=== PATIENT | female | born 1980 | race Caucasian/White ===

== ENCOUNTER 2016-10-08 04:26 | Emergency (ER) | payer MEDICAID ==
[~2016-10-08] VITALS: Ht 167.6 cm; Wt 80.5 kg
[2016-10-08 05:15] VITALS: Ht 167.6 cm; Wt 80.5 kg
[2016-10-08] MEDS ORDERED: ALBUTEROL 0.083% (NEB) 2.5 MG/3 ML AMP INH STA (06:57)
--- NOTE | 2016-10-08 07:24 | RADRPT ---
PROCEDURE: Chest. CLINICAL INDICATION: Shortness of breath. TECHNIQUE: Single frontal view of the chest was obtained. COMPARISON: None. FINDINGS: The cardiac silhouette is within normal limits. The aortic arch is unremarkable. There is no focal consolidation, vascular congestion or pleural effusion. There is no pneumothorax. IMPRESSION: No evidence for active cardiopulmonary disease. .Twin Doyle MD, MD Date Time Electronically viewed and signed by .Twin Doyle MD, on 10/08/2016 07:23 .T/
[2016-10-08] MEDS ORDERED: ALBU8.5H3 INH (07:51)
[2016-10-08 08:03] VITALS: BP 109/57; PULSE 92; RESP 18; TEMP 98.4
--- NOTE | 2016-10-08 08:03 | ERD ---
ER Documentation Chief Complaint Date/Time DATE: 10/08/16 TIME: 08:00 Chief Complaint 18 wks , chest pain x 1 day HPI 36-year-old female presents to the emergency department complaining of cough and chest pain. Patient states that over the last 24 hours, she began having increasing cough. There is no sputum production fevers chills hemoptysis or difficulty breathing. Patient then began developing a pleuritic type chest discomfort at approximately 230 this morning and came to the emergency department for evaluation. At this time, patient describes no shortness of breath. The discomfort in her chest is non-positional, nonexertional and non-anginal. She describes it as mild to moderate ROS All systems reviewed and are negative except as per history of present illness. Medications Home Meds Active Scripts Albuterol Sulfate* (Proair HFA*) 8.5 Gm Hfa.aer.ad, 2 PUFF INH Q4H Y for WHEEZING AND SOB, #1 INHALER Prov:FERNANDO RAMOS 10/08/16 Allergies Allergies: Coded Allergies: No Known Allergy (Unverified , 10/08/16) PMhx/Soc Medical and Surgical Hx: pt denies Medical Hx, pt denies Surgical Hx Hx Alcohol Use: No Hx Substance Use: No Hx Tobacco Use: No Smoking Status: Never smoker FmHx Noncontributory for chief complaint Physical Exam Vitals Vital Signs Date Time Temp Pulse Resp B/P Pulse Ox O2 Delivery O2 Flow Rate FiO2 10/08/16 07:25 82 18 99 21 10/08/16 05:15 98.5 96 20 119/56 99 Physical Exam GENERAL: The patient is well developed and appropriate for usual state of health in no apparent distress HEENT: Pupils equal, round, and reactive to light. EOMI. There is no scleral icterus. NECK: C-spine is soft and supple, there is no meningismus. There is no cervical lymphadenopathy. LUNGS: Wheezing bilaterally. There is no tachypnea or retractions or use of accessory muscles HEART: Regular rate and rhythm, no murmurs, clicks, rubs or gallops. ABDOMEN: Soft, non-tender, non-distended. There are bowel sounds in all four quadrants. No rebound or guarding. EXTREMITIES: There is no peripheral cyanosis or edema. No focal swelling or erythema. NEURO: The patient moves all four extremities with 5/5 strength. Cranial nerves II - XII are intact. Normal gait. Alert and oriented SKIN: There is no apparent rash or petechiae. HEME/LYMPHATIC: There is no evidence of excessive bruising or lymphedema. PSYCHIATRIC: The patient does not appear anxious or depressed. Results 24 hrs Current Medications Medications (Trade) Dose Ordered Sig/Nata Route PRN Reason Start Time Stop Time Status Last Admin Dose Admin Albuterol (Proventil 0.083% (Neb)) 2.5 mg ONCE STAT INH 10/08/16 06:57 10/08/16 06:58 DC 10/08/16 07:25 Procedures/MDM Patient was taken to a room, seen and evaluated. Comfort measures were initiated. Diagnostic tests were ordered and reviewed. EK lead EKG reviewed by myself: Normal Sinus Rhythm Normal [place] and intervals No ST elevation, depression, or T wave inversion Impression: Normal EKG RADIOLOGY: reviewed with the radiologist REEVALUATION: heart tones were checked and were noted to be normal. Repeat evaluation of her lungs after bronchodilators showed that they were now clear to auscultation with no further wheezing. She had resolution of her discomfort MEDICAL DECISION MAKIN-year-old female presents to the emergency department with chest pain and wheezing. Patient is evidence of a bronchitis but no signs of definitive pneumonia based on exam and chest x-ray. Her wheezing is improved with a single bronchodilator treatment and she has no further evidence of increased work of breathing pneumonia hypoxemia or other high-risk concerns. Patient has no significant evidence for concerns for pulmonary embolism at this time which I think is low likelihood given her alternative diagnosis. At this time, given her status I will be treating her with albuterol but withholding antibiotics as I do not feel that she is toxic in any way at this time. Departure Diagnosis: Primary Impression: Wheeze Additional Impressions: Bronchitis Condition: Stable Patient Instructions: Bronchitis With Wheezing (Adult) Additional Instructions: Please see your doctor this week for a recheck. Return for any problems, increased symptoms or any other concerns FERNANDO RAMOS Oct 08, 2016 08:03
== END 2016-10-08 08:05 | disposition home or self-care (01) ==
LOC: E/R 04:26
DX: O99.89 Other specified diseases and conditions complicating pregnancy, childbirth and the puerperium (principal); R06.2 Wheezing; O99.512 Diseases of the respiratory system complicating pregnancy, second trimester; J40 Bronchitis, not specified as acute or chronic; R07.9 Chest pain, unspecified; R40.2142 Coma scale, eyes open, spontaneous, at arrival to emergency department; R40.2252 Coma scale, best verbal response, oriented, at arrival to emergency department; R40.2362 Coma scale, best motor response, obeys commands, at arrival to emergency department; Z3A.18 18 weeks gestation of pregnancy
CPT/HCPCS: 71010; 94664; Z7610; 93005

== ENCOUNTER 2016-12-19 20:57 | Outpatient (CLI) | payer MEDICAID ==
[~2016-12-19] VITALS: Ht 154.9 cm; Wt 84.6 kg
[~2016-12-19 20:57] MED LIST: ALBU8.5H3 INH
[2016-12-19 21:55] VITALS: Ht 154.9 cm; Wt 84.6 kg
[2016-12-19 22:06] VITALS: BP 115/63; PULSE 93; RESP 18
[2016-12-20 00:09] LABS: ADD UMIC YES; URINE BILIRUBIN (Dip) NEGATIVE (NEGATIVE); URINE BLOOD (Dip) 1+ (NEGATIVE); URINE COLOR LT. YELLOW (YELLOW); URINE GLUCOSE (Dip) NEGATIVE (NEGATIVE); URINE KETONES (Dip) NEGATIVE (NEGATIVE); URINE LEUKOCYTE ESTERASE (Dip) NEGATIVE (NEGATIVE); URINE NITRITE (Dip) NEGATIVE (NEGATIVE); URINE TOTAL PROTEIN (Dip) NEGATIVE (NEGATIVE); URINE UROBILINOGEN (Dip) 0.2 E.U./dL (0.1-1.0)
[2016-12-20 00:36] LABS: SQUAMOUS EPITHELIAL CELL,UR FEW
--- NOTE | 2016-12-20 01:03 | RADRPT ---
PROCEDURE: Limited OB ultrasound CLINICAL INDICATION: , pain. TECHNIQUE: Sonographic evaluation to assess the cervical length was performed. Transvaginal imagin g of the uterus was performed. COMPARISON: None. FINDINGS: The cervix is closed, measuring 4.4 cm in length. IMPRESSION: 1. Closed cervix measuring 4.4 cm. RPTAT: HTAR .Jesus Dickson MD, MD Date Time Electronically viewed and signed by .Jesus Dickson MD, on 12/20/2016 01:03 .R/
--- NOTE | 2016-12-20 06:42 | PN ---
Date/Time of Note Date/Time of Note DATE: 12/20/16 TIME: 06:37 OB Subjective Subjective Subjective 36 Year-old [id number] SIUP at 29 weeks presents with a chief complaint of occasional ucs. She states good movement. She denies nausea, vomiting, shortness of breath, chest pain, headache, visual changes, vaginal bleeding or LOF. OB Objective Objective Objective General: Patient appears well, alert and oriented, NAD, appropriate mood and affect ABD: gravid, soft, non-tender. Back: No CVA tenderness (B/L) LE: No clubbing, cyanosis, edema, thigh or calf tenderness bilaterally FHT: 135 bpm , moderate variability with acceleration, no deceleration-category I Contractions: Occasional Speculum exam: No vaginal bleeding or LOF, fibronectin collected SVE: closed/thick/high/post/ceph/intact membrane OB Assessment/Plan Other plan: 36 Year-old [id number] SIUP at 29 weeks presents with occASIONAL UCS. FFN: neg , OB US wnl, CL of 4.4. She had PO fluid. There was no further ucs. - FHR: No sign of metabolic acidosis- Category I - Contractions: None. - Reactive NST. - Symptoms and sign of labor, preeclampsia, kick count discussed with patient, she voiced understanding. All of her questions answered. - Patient was discharged home in stable condition with the appropriate discharge instructions provided. I would like patient to have close follow-up with her primary physician or outpatient clinic in 1-2 days or return to the ER for worsening symptoms or any other urgent concerns. GEOVANNI MOTTA Dec 20, 2016 06:42
== END 2016-12-20 01:45 | disposition home or self-care (01) ==
LOC: L-D 20:57 → OBT 20:57
PROVIDERS: ATTEND Obstetrics & Gynecology
DX: O62.9 Abnormality of forces of labor, unspecified (principal); O09.523 Supervision of elderly multigravida, third trimester; Z3A.29 29 weeks gestation of pregnancy
CPT/HCPCS: 76817; 81001; 82731; Z7500; 81003; G0463

== ENCOUNTER 2017-01-31 13:28 | Inpatient (IN) | payer MEDICAID ==
[~2017-01-31] VITALS: Ht 152.4 cm; Wt 86.4 kg
[2017-01-31 13:51] VITALS: Ht 152.4 cm; Wt 86.4 kg
[2017-01-31] MEDS ORDERED: PREN1TAB31 PO (13:54)
--- NOTE | 2017-01-31 15:00 | RADRPT ---
PROCEDURE: US OB biophysical profile. CLINICAL INDICATION: evaluation, low YOEL TECHNIQUE: Multiple sonographic images of the pelvis were obtained. The images were reviewed on a PACS workstation. COMPARISON: Obstetrical ultrasound from 12/19/2016 FINDINGS: There is a single viable intrauterine gestation. Cardiac activity is present with 136 beats per min [place]. There is a vertex presentation. The placenta is anterior. There is no evidence of placental abruption. There is a low amount of amniotic fluid with an YOEL = 4.9 cm. Biophysical profile: movement 2/2 tone 2/2. breathing 2/2 YOEL 0/2 Total 6/8 RPTAT: AA . IMPRESSION: Abnormal biophysical profile score of 6/8 due to low YOEL of 4.9 cm. Physician Waylon Date Time Electronically viewed and signed by Denilson Pritchett Physician on 01/31/2017 14:59 /
--- NOTE | 2017-01-31 15:01 | RADRPT ---
PROCEDURE: Obstetrical ultrasound CLINICAL INDICATION: LOW YOEL TECHNIQUE: Multiple sonographic images of the pelvis were obtained. The images were reviewed on a PACS workstation. COMPARISON: Obstetrical ultrasound from 12/19/2016 FINDINGS: The cervix is not well visualized. There is a single viable intrauterine gestation. Cardiac activity is present with 144 beats per minute. There is a vertex presentation. The placenta is anterior. There is no evidence for an abruption or placenta previa. There is a low amount of amniotic fluid with an YOEL = 4.9 cm. Measurements were made in order to determine age. The results are as follows (cm): BPD =8.68 HC =31.82 AC =32.33 FL =6.74 Estimated gestational age by ultrasound of approximately 35 weeks, 0 days. The estimated date of delivery by ultrasound is 03/07/2017. Estimated gestational age by LMP of approximately 35 weeks, 1 day. The estimated date of delivery by LMP is 03/06/2017. EFW = 2734 grams (62nd percentile) IMPRESSION: Single viable intrauterine gestation of approximately 35 weeks, 0 days . The estimated date of delivery is 03/07/2017 . Dating by ultrasound is within 1 day of dating by LMP. Low YOEL of 4.9 cm. Cephalic presentation. Estimated weight is in the 62nd percentile. RPTAT: EE Physician Waylon Date Time Electronically viewed and signed by Physician Waylon on 01/31/2017 15:01 /
[2017-01-31] MEDS: LACTATED RINGER'S 1,000 ML IV SCH ×2 (16:06→21:00)
--- NOTE | 2017-01-31 21:33 | RADRPT ---
PROCEDURE: OB ultrasound for biophysical profile CLINICAL INDICATION: Oligohydramnios. TECHNIQUE: Multiple sonographic images of the gravid uterus performed. The images were reviewed on a PACS workstation. COMPARISON: 01/31/2017 FINDINGS: A single live intrauterine is identified with heart rate of 125 bpm. Fet us is in a cephalic presentation. Placenta is located anterior. Biophysical profile: breathing movement = 2/2 tone = 2/2 motion = 2/2 YOEL = 0/2 YOEL = 5.1 cm. IMPRESSION: 1. Single live intrauterine gestation. 2. Biophysical profile = 6/8 due to a low amniotic fluid index 3. YOEL = 5.1 cm, similar with the margin of error to prior YOEL of 4.9 cm. RPTAT: HMVK .Saji Pavon MD, MD Date Time Electronically viewed and signed by .Saji Pavon MD, MD on 01/31/2017 21:32 .K/
--- NOTE | 2017-02-01 09:17 | RADRPT ---
PROCEDURE: OB ultrasound for biophysical profile CLINICAL INDICATION: Low amniotic fluid index. TECHNIQUE: Multiple sonographic images of the pelvis were obtained. Transabdominal view of the gr avid uterus are available for review. The images were reviewed on a PACS workstation. COMPARISON: 01/31/2017 FINDINGS: breathing movement = 2/2 tone = 2/2 motion = 2/2 Quantitative amniotic fluid volume = 2/2 YOEL = 6.1 cm Single live intrauterine with cardiac activity at 127 beats per minute. There is a anterior placenta without previa. IMPRESSION: 1. Single living intrauterine gestation in cephalic position. 2. Biophysical profile = 8/8. 3. YOEL = 6.1 cm. RPTAT: AACC Physician Anne Date Time Electronically viewed and signed by Physician Anne on 02/01/2017 09:17 /
[2017-02-01] MEDS: LACTATED RINGER'S 1,000 ML IV SCH ×3 (10:26→22:36)
--- NOTE | 2017-02-01 17:15 | RADRPT ---
PROCEDURE: Limited OB ultrasound CLINICAL INDICATION: Oligohydramnios. Follow-up. Evaluate fluid volume. TECHNIQUE: Sonographic evaluation to assess the amniotic fluid volume was performed. Transabdomin al imaging of the gravid uterus was performed. COMPARISON: Exam dated 01/31/2017. FINDINGS: Single live intrauterine with cardiac activity is identified with a heart rate of 12 6 beats per minute. There is a cephalic lie and an anterior, grade II placenta. The amniotic -fluid volume equals approximately 6.5 cm. IMPRESSION: Amniotic fluid volume equals 6.5 cm, which is consistent with borderline oligohydramnios, and minima lly improved from the prior. RPTAT: HLBP .Rogelio Lugo MD, Date Time Electronically viewed and signed by .Rogelio Lugo MD, MD on 02/01/2017 17:14 .P/
[2017-02-02] MEDS: LACTATED RINGER'S 1,000 ML IV SCH ×2 (05:16→12:08)
--- NOTE | 2017-02-02 12:38 | RADRPT ---
PROCEDURE: US OB. CLINICAL INDICATION: Low YOEL , pain TECHNIQUE: Transabdominal views of the pelvis are available for review. COMPARISON: 02/01/17 FINDINGS: There is a single intrauterine gestation in a vertex position. The heart rate is noted at 142 bpm. The placenta is anterior. The YOEL measures 7.6 cm. RPTAT: AA IMPRESSION: Slightly decreased YOEL. .Gera Sanchez MD, MD Date Time Electronically viewed and signed by .Gera Sanchez MD, on 02/02/2017 12:38 .S/
--- NOTE | 2017-02-02 14:11 | HP ---
Date/Time of Note Date/Time of Note DATE: 02/02/17 TIME: 13:56 OB - History Hx of Present Free Text/Dictation This is a 36 years old female 3 para 2 with a history of 2 previous section EDC March 06, 2017 seen at the triage unit due to low YOEL of 4.9 patient hydrated as of February 01 IV infusion Ringer's lactate 150cc q. one hour repeat ultrasound for YOEL today 7.6 perinatology phone consult recommended DC home to scheduled for repeat NST YOEL a.m. at NST unit patient is being discharged with recommendation of hydration and bedrest and to present herself NST unit in the morning Chief Complaint: Low YOEL Estimated Due Date: Mar 06, 2017 : 3 Care: Limited Care Ultrasounds: Normal mid trimester US Obstetrical Complications: Other (Low YOEL) Medical Complications: Other (Right oophorectomy due to ovarian cyst, recently discovered possible asthma) Past Family/Social History * Past Medical, Surgical, Family and Obstetric Histories reviewed from chart. Rubella: immune RPR/VDRL: Negative GBS Status: Negative HBsAG: Negative OB Admission Exam Physical Exam HEENT: WNL Heart: Rhythm Normal Lungs: Clear, Equal Abdomen: WNL Extremities: Normal Reflexes: Normal Station: -2 Membranes: Intact Heart Rate: 130's Accelerations: Accelerations Present Varibility: Moderate OB Assessment/Plan Reason for admission: other (Admitted to the hospital for hydration due to low YOEL) Plan: Other (Patient discharged home with the perinatologist recommendation to to make appointment on February 03 at NST clinic for ultrasound follow-up of low YOEL) BRIANNE BENEDICT MD Feb 02, 2017 14:07
--- NOTE | 2017-02-02 14:14 | DS ---
Date/Time of Note Date/Time of Note DATE: 02/02/17 TIME: 14:11 Discharge Summary Admission/Discharge Info Admit Date/Time February 01, 2017 at 00:30 Discharge Date/Time February 02, 2017 at 1411 Final Diagnosis 35-1/2 weeks low YOEL Patient Condition: Good Consults Perinatology Procedures Observation hydration expecting management Hx of Present Illness 35-1/2 weeks low YOEL Hospital Course Hospital course satisfactory biophysical profile 8 out of 8 patient discharged with appointment on February 03 with perinatology office Home Meds Active Scripts Albuterol Sulfate* (Proair HFA*) 8.5 Gm Hfa.aer.ad, 2 PUFF INH Q4H Y for WHEEZING AND SOB, #1 INHALER Prov:FERNANDO RAMOS 10/08/16 Reported Medications Vits #90-Iron Fum-FA ( Formula) 1 Each Tablet, 1 TAB PO DAILY, TAB 01/31/17 Primary Care Provider Care Physician No Primary Time spent on discharge: < 30 minutes BRIANNE BENEDICT MD Feb 02, 2017 14:14
== END 2017-02-02 14:45 | disposition home or self-care (01) | DRG 782 ==
LOC: OBT 13:28 → L-D 13:30 → OBG 15:25 → OBT 02-01 00:30 → OBG 02-01 00:30
PROVIDERS: ADMIT Obstetrics & Gynecology; ATTEND Obstetrics & Gynecology
DX: O41.8X30 Other specified disorders of amniotic fluid and membranes, third trimester, not applicable or unspecified (principal); O09.523 Supervision of elderly multigravida, third trimester; Z3A.35 35 weeks gestation of pregnancy
CPT/HCPCS: 76815; 76816; 76818; 96360; G0463; J7120

== ENCOUNTER 2017-02-03 15:17 | Outpatient (CLI) | payer MEDICAID ==
[~2017-02-03] VITALS: Ht 154.9 cm; Wt 86.5 kg
[~2017-02-03 15:17] MED LIST changes: +PREN1TAB31 PO
[2017-02-03 15:47] VITALS: Ht 154.9 cm; Wt 86.5 kg
[2017-02-03 15:48] VITALS: BP 116/57; PULSE 82; RESP 18
--- NOTE | 2017-02-03 16:20 | RADRPT ---
PROCEDURE: Obstetrical ultrasound CLINICAL INDICATION: HISTORY OF LOW YOEL TECHNIQUE: Multiple sonographic images of the pelvis were obtained. The images were reviewed on a PACS workstation. COMPARISON: Obstetrical ultrasound from 02/02/2017 FINDINGS: The cervix is not well visualized. There is a single viable intrauterine gestation. Cardiac activity is present with 126 beats per minute. There is a vertex presentation. The placenta is anterior. There is no evidence for an abruption or placenta previa. There is a normal amount of amniotic fluid with an YOEL = 8.9 cm. IMPRESSION: Normal YOEL of 8.9 cm, compared with an YOEL of 7.6 cm previously. Cephalic presentation. RPTAT: EE Physician Waylon Date Time Electronically viewed and signed by Physician Waylon on 02/03/2017 16:19 /
--- NOTE | 2017-02-03 16:54 | QN ---
Documentation Comment ho low hari no complaints vss exam wnl us wnl ap iup 35 wks borerline oligo-resolved GLENYS ATWOOD MD Feb 03, 2017 16:54
--- NOTE | 2017-02-03 16:58 | TRIAGE ---
OB Triage Datetime Report Generated by CPN: 02/03/2017 16:57 Datetime: 02/03/2017 16:40 Stage of : OB Triage Labor Evaluation Frequency: 0 Monitor Mode: External Pattern: Normal: <= 5 Contractions in 10 Minutes Resting [place]one [place]: Relaxed Heart Rate FHR Baseline Rate: 130 Monitor Mode: External US Variability: Moderate 6-25 bpm Accelerations: 15X15 Decelerations: None Category: Category I Pain Presence: None/Denies Datetime: 02/03/2017 15:46 Assessment Type: Admission Assessment Maternal Assessment Level of Consciousness: Fully Conscious DTR's/Clonus: DTRs 2+; No Clonus Headache: Denies Blurred Vision: No Respiratory Effort: Unlabored; Regular Rhythm; Equal Expansion Breath Sounds, Left: Clear and Equal Breath Sounds, Right: Clear and Equal Nausea/Vomiting: Denies RUQ Epigastric Pain: Denies Lower Extremities Edema: None Degree: None Upper Extremities Edema: None Degree: None Facial Edema: None Fall Risk Assessment History of Falling: (0) No Secondary Diagnosis: (0) No Ambulatory Aid: (0) Bedrest/Nurse Assist IV Therapy: (0) No Gait: (0) Normal/Bedrest/Immobile Mental Status: (0) Oriented to Own Ability Fall Score: 0 Fall Risk Score Definition: No Risk: No action required Datetime: 02/03/2017 15:45 Time of Arrival: 02/03/2017 15:25 EGA: 35.4 Arrived By: Ambulatory Arrived From: Home Chief Complaint: HISTORY OF LOW YOEL. PT. HERE FOR FOLLOW UP YOEL Movement: Present Contractions: Denies/Absent Rupture of Membranes: Denies Vaginal Bleeding: None Vaginal Discharge: Denies Recent Sexual Intercouse: Denies Abdominal Trauma: Not Applicable Patient Complaints: None Time Provider Notified: 02/03/2017 16:47 Provider Notified: DR. BENEDICT Initial Plan: TOCO/ US, YOEL-8.9 CM Datetime: 02/03/2017 15:40 Pain Presence: None/Denies Datetime: 02/02/2017 14:16 Labor Evaluation Frequency: 0 Monitor Mode: External Resting [place]one [place]: Relaxed Heart Rate FHR Baseline Rate: 140 Monitor Mode: External US FHR Baseline Changes: No Baseline Change Variability: Moderate 6-25 bpm Accelerations: 15X15 Decelerations: None Category: Category I Datetime: 02/02/2017 13:00 Labor Evaluation Frequency: 0 Monitor Mode: External Resting [place]one [place]: Relaxed Heart Rate FHR Baseline Rate: 130 Monitor Mode: External US FHR Baseline Changes: No Baseline Change Variability: Moderate 6-25 bpm Accelerations: 15X15 Decelerations: None Category: Category I Datetime: 02/02/2017 12:00 Labor Evaluation Frequency: 0 Monitor Mode: External Resting [place]one [place]: Relaxed Heart Rate FHR Baseline Rate: 130 Monitor Mode: External US FHR Baseline Changes: No Baseline Change Variability: Moderate 6-25 bpm Accelerations: 15X15 Decelerations: None Category: Category I Datetime: 02/02/2017 10:55 Labor Evaluation Frequency: 0 Monitor Mode: External Resting [place]one [place]: Relaxed Heart Rate FHR Baseline Rate: 140 Monitor Mode: External US FHR Baseline Changes: No Baseline Change Variability: Moderate 6-25 bpm Accelerations: 15X15 Decelerations: None Category: Category I Datetime: 02/02/2017 10:24 Labor Evaluation Frequency: 0 Monitor Mode: External Resting [place]one [place]: Relaxed Heart Rate FHR Baseline Rate: 130 Monitor Mode: External US FHR Baseline Changes: No Baseline Change Variability: Moderate 6-25 bpm Accelerations: 15X15 Decelerations: None Category: Category I Datetime: 02/02/2017 09:44 Monitor Mode: External Resting [place]one [place]: Relaxed Heart Rate FHR Baseline Rate: 120 Monitor Mode: External US FHR Baseline Changes: No Baseline Change Variability: Moderate 6-25 bpm Category: Category I Datetime: 02/02/2017 09:00 Labor Evaluation Frequency: 0 Monitor Mode: External Resting [place]one [place]: Relaxed Heart Rate FHR Baseline Rate: 120 Monitor Mode: External US FHR Baseline Changes: No Baseline Change Variability: Moderate 6-25 bpm Accelerations: 15X15 Decelerations: None Category: Category I Datetime: 02/02/2017 08:02 Assessment Type: Ongoing Assessment Maternal Assessment Level of Consciousness: Fully Conscious DTR's/Clonus: DTRs 2+; No Clonus Headache: Denies Blurred Vision: No Respiratory Effort: Unlabored; Regular Rhythm; Equal Expansion Breath Sounds, Left: Clear and Equal Breath Sounds, Right: Clear and Equal Nausea/Vomiting: Denies RUQ Epigastric Pain: Denies Lower Extremities Edema: None Degree: None Upper Extremities Edema: None Degree: None Facial Edema: None Fall Risk Assessment History of Falling: (0) No Secondary Diagnosis: (0) No Ambulatory Aid: (0) Bedrest/Nurse Assist IV Therapy: (20) Yes Gait: (0) Normal/Bedrest/Immobile Mental Status: (0) Oriented to Own Ability Fall Score: 20 Fall Risk Score Definition: No Risk: No action required Datetime: 02/02/2017 08:00 Labor Evaluation Frequency: 0 Monitor Mode: External Resting [place]one [place]: Relaxed Heart Rate FHR Baseline Rate: 150 Monitor Mode: External US FHR Baseline Changes: No Baseline Change Variability: Moderate 6-25 bpm Accelerations: 15X15 Decelerations: None Category: Category I Datetime: 02/02/2017 07:59 Stage of : Antepartum Temperature Route: Oral Pain Assessment Pain Scale: 0 Pain Presence: None/Denies Datetime: 02/02/2017 07:10 Stage of : Antepartum Datetime: 02/02/2017 05:19 Stage of : Antepartum Datetime: 02/02/2017 05:16 Stage of : Antepartum Datetime: 02/02/2017 05:00 Labor Evaluation Frequency: NONE Monitor Mode: External Resting [place]one [place]: Relaxed Heart Rate FHR Baseline Rate: 120 Monitor Mode: External US Variability: Moderate 6-25 bpm Accelerations: 15X15 Decelerations: None Category: Category I Pain Presence: None/Denies Pain Type: N/A Datetime: 02/02/2017 04:00 Stage of : Antepartum Labor Evaluation Frequency: NONE Monitor Mode: External Resting [place]one [place]: Relaxed Heart Rate FHR Baseline Rate: 125 Monitor Mode: External US Variability: Moderate 6-25 bpm Accelerations: 15X15 Decelerations: None Category: Category I Pain Presence: None/Denies Pain Type: N/A Datetime: 02/02/2017 03:00 Labor Evaluation Frequency: NONE Monitor Mode: External Resting [place]one [place]: Relaxed Pain Presence: None/Denies Pain Type: N/A Datetime: 02/02/2017 02:00 Labor Evaluation Frequency: NONE Monitor Mode: External Resting [place]one [place]: Relaxed Heart Rate FHR Baseline Rate: 120 Monitor Mode: External US Variability: Moderate 6-25 bpm Accelerations: 15X15 Decelerations: None Category: Category I Pain Presence: None/Denies Pain Type: N/A Datetime: 02/02/2017 01:00 Labor Evaluation Frequency: NONE Monitor Mode: External Resting [place]one [place]: Relaxed Heart Rate FHR Baseline Rate: 120 Monitor Mode: External US Variability: Moderate 6-25 bpm Accelerations: 15X15 Decelerations: None Category: Category I Datetime: 02/02/2017 00:00 Labor Evaluation Frequency: NONE Heart Rate FHR Baseline Rate: 120 Monitor Mode: External US Variability: Moderate 6-25 bpm Accelerations: 15X15 Decelerations: None Category: Category I Pain Presence: None/Denies Pain Type: N/A Datetime: 02/01/2017 23:00 Labor Evaluation Frequency: NONE Monitor Mode: External Resting [place]one [place]: Relaxed Heart Rate FHR Baseline Rate: 125 Monitor Mode: External US Variability: Moderate 6-25 bpm Accelerations: 15X15 Decelerations: None Category: Category I Pain Presence: None/Denies Pain Type: N/A Datetime: 02/01/2017 22:26 Monitor Mode: External Contraction Comments: REAPPLIED AFTER SHOWER Monitor Mode: External US Comments: REAPPLIED AFTER SHOWER Datetime: 02/01/2017 22:00 Labor Evaluation Frequency: NONE Monitor Mode: External Resting [place]one [place]: Relaxed Heart Rate FHR Baseline Rate: 130 Monitor Mode: External US Variability: Moderate 6-25 bpm Accelerations: 15X15 Decelerations: None Category: Category I Pain Type: N/A Datetime: 02/01/2017 21:00 Labor Evaluation Frequency: NONE Monitor Mode: External Resting [place]one [place]: Relaxed Heart Rate FHR Baseline Rate: 135 Monitor Mode: External US Variability: Moderate 6-25 bpm Accelerations: 15X15 Decelerations: None Category: Category I Pain Presence: None/Denies Pain Type: N/A Datetime: 02/01/2017 20:00 Labor Evaluation Frequency: NONE Monitor Mode: External Resting [place]one [place]: Relaxed Heart Rate FHR Baseline Rate: 130 Monitor Mode: External US Variability: Moderate 6-25 bpm Accelerations: 15X15 Decelerations: None Category: Category I Pain Presence: None/Denies Pain Type: N/A Datetime: 02/01/2017 19:36 Stage of : Antepartum Assessment Type: Ongoing Assessment Maternal Assessment Level of Consciousness: Fully Conscious DTR's/Clonus: DTRs 2+; No Clonus Headache: Denies Blurred Vision: No Respiratory Effort: Unlabored; Regular Rhythm; Equal Expansion Breath Sounds, Left: Clear and Equal Breath Sounds, Right: Clear and Equal Nausea/Vomiting: Denies RUQ Epigastric Pain: Denies Lower Extremities Edema: None Degree: None Upper Extremities Edema: None Degree: None Facial Edema: None Temperature Route: Oral Fall Risk Assessment History of Falling: (0) No Secondary Diagnosis: (0) No Ambulatory Aid: (0) Bedrest/Nurse Assist IV Therapy: (0) No Gait: (0) Normal/Bedrest/Immobile Mental Status: (0) Oriented to Own Ability Fall Score: 0 Fall Risk Score Definition: No Risk: No action required Contraction Comments: PT DENIES UC'S Comments: PT STATES + FM Pain Presence: None/Denies Pain Type: N/A Datetime: 02/01/2017 18:00 Stage of : Antepartum Maternal Assessment Level of Consciousness: Fully Conscious Headache: Denies Nausea/Vomiting: Denies RUQ Epigastric Pain: Denies Labor Evaluation Frequency: 0/hr Monitor Mode: External Heart Rate FHR Baseline Rate: 130 Monitor Mode: External US Variability: Moderate 6-25 bpm Accelerations: 15X15 Decelerations: None Pain Assessment Pain Scale: 0 Pain Presence: None/Denies Vaginal Bleeding: None Datetime: 02/01/2017 17:00 Stage of : Antepartum Maternal Assessment Level of Consciousness: Fully Conscious Headache: Denies Nausea/Vomiting: Denies RUQ Epigastric Pain: Denies Labor Evaluation Frequency: 0/hr Monitor Mode: External Heart Rate FHR Baseline Rate: 130 Monitor Mode: External US Variability: Moderate 6-25 bpm Accelerations: 15X15 Decelerations: None Pain Assessment Pain Scale: 0 Pain Presence: None/Denies Vaginal Bleeding: None Datetime: 02/01/2017 16:00 Stage of : Antepartum Maternal Assessment Level of Consciousness: Fully Conscious Headache: Denies Nausea/Vomiting: Denies RUQ Epigastric Pain: Denies Labor Evaluation Frequency: 0/hr Monitor Mode: External Heart Rate FHR Baseline Rate: 130 Monitor Mode: External US Variability: Moderate 6-25 bpm Accelerations: 15X15 Decelerations: None Pain Assessment Pain Scale: 0 Pain Presence: None/Denies Vaginal Bleeding: None Datetime: 02/01/2017 15:00 Stage of : Antepartum Maternal Assessment Level of Consciousness: Fully Conscious Headache: Denies Nausea/Vomiting: Denies RUQ Epigastric Pain: Denies Labor Evaluation Frequency: 0/hr Monitor Mode: External Heart Rate FHR Baseline Rate: 130 Monitor Mode: External US Variability: Moderate 6-25 bpm Accelerations: 15X15 Decelerations: None Pain Assessment Pain Scale: 0 Pain Presence: None/Denies Vaginal Bleeding: None Datetime: 02/01/2017 14:24 Resting [place]one [place]: Relaxed Monitor Mode: External US Datetime: 02/01/2017 14:00 Stage of : Antepartum Maternal Assessment Level of Consciousness: Fully Conscious Headache: Denies Nausea/Vomiting: Denies RUQ Epigastric Pain: Denies Labor Evaluation Frequency: 0/hr Monitor Mode: External Heart Rate FHR Baseline Rate: 130 Monitor Mode: External US Variability: Moderate 6-25 bpm Accelerations: 15X15 Decelerations: None Pain Assessment Pain Scale: 0 Pain Presence: None/Denies Vaginal Bleeding: None Datetime: 02/01/2017 13:29 Pain Presence: None/Denies Datetime: 02/01/2017 13:00 Stage of : Antepartum Maternal Assessment Level of Consciousness: Fully Conscious Headache: Denies Nausea/Vomiting: Denies RUQ Epigastric Pain: Denies Labor Evaluation Frequency: 0/hr Monitor Mode: External Heart Rate FHR Baseline Rate: 130 Monitor Mode: External US Variability: Moderate 6-25 bpm Accelerations: 15X15 Decelerations: None Pain Assessment Pain Scale: 0 Pain Presence: None/Denies Vaginal Bleeding: None Datetime: 02/01/2017 12:00 Stage of : Antepartum Maternal Assessment Level of Consciousness: Fully Conscious Headache: Denies Nausea/Vomiting: Denies RUQ Epigastric Pain: Denies Labor Evaluation Frequency: 0/hr Monitor Mode: External Heart Rate FHR Baseline Rate: 130 Monitor Mode: External US Variability: Moderate 6-25 bpm Accelerations: 15X15 Decelerations: None Pain Assessment Pain Scale: 0 Pain Presence: None/Denies Vaginal Bleeding: None Datetime: 02/01/2017 11:00 Stage of : Antepartum Maternal Assessment Level of Consciousness: Fully Conscious Headache: Denies Nausea/Vomiting: Denies RUQ Epigastric Pain: Denies Labor Evaluation Frequency: 0/hr Monitor Mode: External Heart Rate FHR Baseline Rate: 130 Monitor Mode: External US Variability: Moderate 6-25 bpm Accelerations: 15X15 Decelerations: None Pain Assessment Pain Scale: 0 Pain Presence: None/Denies Vaginal Bleeding: None Datetime: 02/01/2017 10:17 Resting [place]one [place]: Relaxed Pain Presence: None/Denies Datetime: 02/01/2017 10:00 Stage of : Antepartum Maternal Assessment Level of Consciousness: Fully Conscious Headache: Denies Nausea/Vomiting: Denies RUQ Epigastric Pain: Denies Labor Evaluation Frequency: 0/hr Monitor Mode: External Heart Rate FHR Baseline Rate: 125 Monitor Mode: External US Variability: Moderate 6-25 bpm Accelerations: 15X15 Decelerations: None Pain Assessment Pain Scale: 0 Pain Presence: None/Denies Vaginal Bleeding: None Datetime: 02/01/2017 09:59 Stage of : Antepartum Datetime: 02/01/2017 09:00 Stage of : Antepartum Maternal Assessment Level of Consciousness: Fully Conscious Headache: Denies Nausea/Vomiting: Denies RUQ Epigastric Pain: Denies Labor Evaluation Frequency: 0/hr Monitor Mode: External Heart Rate FHR Baseline Rate: 125 Monitor Mode: External US Variability: Moderate 6-25 bpm Accelerations: 15X15 Decelerations: None Pain Assessment Pain Scale: 0 Pain Presence: None/Denies Vaginal Bleeding: None Datetime: 02/01/2017 08:00 Stage of : Antepartum Maternal Assessment Level of Consciousness: Fully Conscious Headache: Denies Nausea/Vomiting: Denies RUQ Epigastric Pain: Denies Labor Evaluation Frequency: 0/hr Monitor Mode: External Heart Rate FHR Baseline Rate: 125 Monitor Mode: External US Variability: Moderate 6-25 bpm Accelerations: 15X15 Decelerations: None Category: Category I Comments: ega 35.2 Pain Assessment Pain Scale: 0 Pain Presence: None/Denies Membrane Status: Intact Vaginal Bleeding: None Datetime: 02/01/2017 07:26 Heart Rate FHR Baseline Rate: 135 Variability: Moderate 6-25 bpm Accelerations: 15X15 Decelerations: None Category: Category I Datetime: 02/01/2017 07:24 Assessment Type: Admission Assessment Maternal Assessment Level of Consciousness: Fully Conscious Maternal Assessment Level of Consciousness: Fully Conscious DTR's/Clonus: DTRs 2+; No Clonus Headache: Denies Headache: Denies Blurred Vision: No Blurred Vision: No Respiratory Effort: Unlabored; Regular Rhythm; Equal Expansion Breath Sounds, Left: Clear and Equal Breath Sounds, Right: Clear and Equal Nausea/Vomiting: Denies Nausea/Vomiting: Denies RUQ Epigastric Pain: Denies Lower Extremities Edema: None Degree: None Upper Extremities Edema: None Degree: None Facial Edema: None Fall Risk Assessment History of Falling: (0) No Secondary Diagnosis: (0) No Ambulatory Aid: (0) Bedrest/Nurse Assist IV Therapy: (20) Yes Gait: (0) Normal/Bedrest/Immobile Mental Status: (0) Oriented to Own Ability Fall Score: 20 Fall Risk Score Definition: No Risk: No action required Monitor Mode: Palpation Resting [place]one [place]: Relaxed Pain Presence: None/Denies Membrane Status: Intact Datetime: 02/01/2017 06:54 Labor Evaluation Frequency: none Monitor Mode: External Resting [place]one [place]: Relaxed Heart Rate FHR Baseline Rate: 125 Monitor Mode: External US FHR Baseline Changes: No Baseline Change Variability: Moderate 6-25 bpm Accelerations: 15X15 Decelerations: None Category: Category I Datetime: 02/01/2017 06:00 Labor Evaluation Frequency: none Monitor Mode: External Resting [place]one [place]: Relaxed Heart Rate FHR Baseline Rate: 125 Monitor Mode: External US FHR Baseline Changes: No Baseline Change Variability: Moderate 6-25 bpm Accelerations: 15X15 Decelerations: None Category: Category I Datetime: 02/01/2017 05:00 Labor Evaluation Frequency: none Monitor Mode: External Resting [place]one [place]: Relaxed Heart Rate FHR Baseline Rate: 120 Monitor Mode: External US FHR Baseline Changes: No Baseline Change Variability: Moderate 6-25 bpm Accelerations: 15X15 Decelerations: None Category: Category I Datetime: 02/01/2017 04:00 Labor Evaluation Frequency: none Monitor Mode: External Resting [place]one [place]: Relaxed Heart Rate FHR Baseline Rate: 120 Monitor Mode: External US FHR Baseline Changes: No Baseline Change Variability: Moderate 6-25 bpm Accelerations: 15X15 Decelerations: None Category: Category I Datetime: 02/01/2017 03:00 Labor Evaluation Frequency: x1 Monitor Mode: External Duration (sec)2399: 50 Quality: Mild Resting [place]one [place]: Relaxed Contraction Comments: pt without complaint of uc pain. Heart Rate FHR Baseline Rate: 125 Monitor Mode: External US FHR Baseline Changes: No Baseline Change Variability: Moderate 6-25 bpm Accelerations: 15X15 Decelerations: None Category: Category I Datetime: 02/01/2017 02:00 Labor Evaluation Frequency: x1 Monitor Mode: External Duration (sec)2399: 50 Quality: Mild Resting [place]one [place]: Relaxed Contraction Comments: pt without complaint of uc pain. Heart Rate FHR Baseline Rate: 125 Monitor Mode: External US FHR Baseline Changes: No Baseline Change Variability: Moderate 6-25 bpm Accelerations: 15X15 Decelerations: None Category: Category I Datetime: 02/01/2017 01:00 Labor Evaluation Frequency: none Monitor Mode: External Resting [place]one [place]: Relaxed Heart Rate FHR Baseline Rate: 120 Monitor Mode: External US FHR Baseline Changes: No Baseline Change Variability: Moderate 6-25 bpm Accelerations: 15X15 Decelerations: None Category: Category I Datetime: 02/01/2017 00:24 Stage of : Antepartum Temperature Route: Oral Datetime: 02/01/2017 00:04 Stage of : Antepartum Datetime: 02/01/2017 00:00 Labor Evaluation Frequency: none Monitor Mode: External Resting [place]one [place]: Relaxed Heart Rate FHR Baseline Rate: 120 Monitor Mode: External US FHR Baseline Changes: No Baseline Change Variability: Moderate 6-25 bpm Accelerations: 15X15 Decelerations: None Category: Category I Datetime: 01/31/2017 23:00 Labor Evaluation Frequency: none Monitor Mode: External Resting [place]one [place]: Relaxed Heart Rate FHR Baseline Rate: 125 Monitor Mode: External US FHR Baseline Changes: No Baseline Change Variability: Moderate 6-25 bpm Accelerations: 15X15 Decelerations: None Category: Category II Datetime: 01/31/2017 22:00 Labor Evaluation Frequency: none Monitor Mode: External Resting [place]one [place]: Relaxed Heart Rate FHR Baseline Rate: 135 Monitor Mode: External US FHR Baseline Changes: No Baseline Change Variability: Moderate 6-25 bpm Accelerations: 15X15 Decelerations: None Category: Category I Datetime: 01/31/2017 21:00 Labor Evaluation Frequency: none Monitor Mode: External Resting [place]one [place]: Relaxed Heart Rate FHR Baseline Rate: 130 Monitor Mode: External US FHR Baseline Changes: No Baseline Change Variability: Moderate 6-25 bpm Accelerations: 15X15 Decelerations: None Category: Category I Datetime: 01/31/2017 20:04 Stage of : OB Triage Assessment Type: Admission Assessment Maternal Assessment Level of Consciousness: Fully Conscious DTR's/Clonus: DTRs 2+; No Clonus Headache: Denies Blurred Vision: No Respiratory Effort: Unlabored; Regular Rhythm; Equal Expansion Breath Sounds, Left: Clear and Equal Breath Sounds, Right: Clear and Equal Nausea/Vomiting: Denies RUQ Epigastric Pain: Denies Lower Extremities Edema: None Degree: None Upper Extremities Edema: None Degree: None Facial Edema: None Temperature Route: Oral Fall Risk Assessment History of Falling: (0) No Secondary Diagnosis: (0) No Ambulatory Aid: (0) Bedrest/Nurse Assist IV Therapy: (20) Yes Gait: (0) Normal/Bedrest/Immobile Mental Status: (0) Oriented to Own Ability Fall Score: 20 Fall Risk Score Definition: No Risk: No action required Datetime: 01/31/2017 20:00 Labor Evaluation Frequency: none Monitor Mode: External Resting [place]one [place]: Relaxed Heart Rate FHR Baseline Rate: 130 Monitor Mode: External US FHR Baseline Changes: No Baseline Change Variability: Moderate 6-25 bpm Accelerations: 15X15 Decelerations: None Category: Category I Pain Assessment Pain Scale: 0 Pain Presence: None/Denies Datetime: 01/31/2017 19:20 Assessment Type: Triage Datetime: 01/31/2017 19:14 Stage of : Antepartum Datetime: 01/31/2017 19:00 Stage of : Antepartum Labor Evaluation Frequency: NONE Monitor Mode: External Resting [place]one [place]: Relaxed Heart Rate FHR Baseline Rate: 130 Monitor Mode: External US FHR Baseline Changes: No Baseline Change Variability: Moderate 6-25 bpm Accelerations: 15X15 Decelerations: None Category: Category I Pain Assessment Pain Scale: 0 Pain Presence: None/Denies Pain Goal: 3 Datetime: 01/31/2017 18:00 Stage of : Antepartum Labor Evaluation Frequency: NONE Monitor Mode: External Resting [place]one [place]: Relaxed Heart Rate FHR Baseline Rate: 130 Monitor Mode: External US FHR Baseline Changes: No Baseline Change Variability: Moderate 6-25 bpm Accelerations: 15X15 Decelerations: None Category: Category I Pain Assessment Pain Scale: 0 Pain Presence: None/Denies Pain Goal: 3 Datetime: 01/31/2017 17:00 Stage of : Antepartum Labor Evaluation Frequency: NONE Monitor Mode: External Resting [place]one [place]: Relaxed Heart Rate FHR Baseline Rate: 130 FHR Baseline Changes: No Baseline Change Variability: Moderate 6-25 bpm Accelerations: 10X10 Decelerations: None Category: Category I Pain Assessment Pain Scale: 0 Pain Presence: None/Denies Pain Goal: 3 Datetime: 01/31/2017 15:42 Stage of : Antepartum Datetime: 01/31/2017 15:18 Labor Evaluation Frequency: 0 Monitor Mode: External Heart Rate FHR Baseline Rate: 130 Monitor Mode: External US FHR Baseline Changes: No Baseline Change Variability: Moderate 6-25 bpm Accelerations: 15X15 Decelerations: None Category: Category I Pain Assessment Pain Scale: 3 Pain Presence: Intermittent Pain Type: Cramping Pain Location: Abdomen Pain Relief Measures: Comfort Measures Datetime: 01/31/2017 15:14 Vaginal Exam Dilatation (cms): 0.0 Datetime: 01/31/2017 15:06 Labor Evaluation Frequency: 0 Monitor Mode: External Heart Rate FHR Baseline Rate: 130 Monitor Mode: External US FHR Baseline Changes: No Baseline Change Variability: Moderate 6-25 bpm Accelerations: 15X15 Decelerations: None Category: Category I Pain Presence: None/Denies Datetime: 01/31/2017 13:47 Stage of : OB Triage Assessment Type: Triage Maternal Assessment Level of Consciousness: Fully Conscious DTR's/Clonus: DTRs 2+; No Clonus Headache: Denies Blurred Vision: No Respiratory Effort: Unlabored; Regular Rhythm; Equal Expansion Breath Sounds, Left: Clear and Equal Breath Sounds, Right: Clear and Equal Nausea/Vomiting: Denies RUQ Epigastric Pain: Denies Lower Extremities Edema: None Degree: None Upper Extremities Edema: None Degree: None Facial Edema: None Temperature Route: Axillary Fall Risk Assessment History of Falling: (0) No Secondary Diagnosis: (0) No Ambulatory Aid: (0) Bedrest/Nurse Assist IV Therapy: (0) No Gait: (0) Normal/Bedrest/Immobile Mental Status: (0) Oriented to Own Ability Fall Score: 0 Fall Risk Score Definition: No Risk: No action required Datetime: 01/31/2017 13:42 Time of Arrival: 01/31/2017 13:43 EGA: 35.1 Arrived By: Ambulatory Arrived From: Office Chief Complaint: UC'S AND LOW YOEL Movement: Present Contractions: Irregular Rupture of Membranes: Denies Vaginal Bleeding: None Vaginal Discharge: Denies Recent Sexual Intercouse: Denies Abdominal Trauma: Not Applicable Patient Complaints: Cramping Time Provider Notified: 01/24/2017 14:10 Provider Notified: JAK Initial Plan: NST AND BPP AND YOEL Datetime: 12/20/2016 01:00 Labor Evaluation Frequency: NONE Monitor Mode: External Quality: Mild Pattern: Normal: <= 5 Contractions in 10 Minutes Heart Rate FHR Baseline Rate: 120 Monitor Mode: External US Variability: Moderate 6-25 bpm Accelerations: 15X15 Decelerations: None Category: Category I Datetime: 12/20/2016 00:00 Labor Evaluation Frequency: X1 Monitor Mode: External Quality: Mild Pattern: Normal: <= 5 Contractions in 10 Minutes Resting Tone [place]: Relaxed Heart Rate FHR Baseline Rate: 125 Monitor Mode: External US Variability: Moderate 6-25 bpm Accelerations: 15X15 Decelerations: None Category: Category I Datetime: 12/19/2016 23:00 Labor Evaluation Frequency: NONE Monitor Mode: External Pattern: Normal: <= 5 Contractions in 10 Minutes Resting Tone [place]: Relaxed Heart Rate FHR Baseline Rate: 125 Monitor Mode: External US Variability: Moderate 6-25 bpm Accelerations: 15X15 Decelerations: None Category: Category I Datetime: 12/19/2016 22:07 Stage of : OB Triage Datetime: 12/19/2016 22:04 Vaginal Exam Dilatation (cms): 0.0 Effacement (%): 0 Station: -3 Exam By: BEVAGELISTA Vaginal Bleeding: None Cervix, Consistency: Firm Cervix, Position: Midposition Datetime: 12/19/2016 22:00 Stage of : OB Triage Labor Evaluation Frequency: NONE Monitor Mode: External Pattern: Normal: <= 5 Contractions in 10 Minutes Resting Tone [place]: Relaxed Heart Rate FHR Baseline Rate: 125 Monitor Mode: External US Variability: Moderate 6-25 bpm Accelerations: 15X15 Decelerations: None Category: Category I Membrane Status: Intact Datetime: 12/19/2016 21:30 Assessment Type: Triage Maternal Assessment Level of Consciousness: Fully Conscious DTR's/Clonus: DTRs 2+; No Clonus Headache: Denies Blurred Vision: No Respiratory Effort: Unlabored; Regular Rhythm; Equal Expansion Breath Sounds, Left: Clear and Equal Breath Sounds, Right: Clear and Equal Nausea/Vomiting: Denies RUQ Epigastric Pain: Denies Lower Extremities Edema: None Degree: None Upper Extremities Edema: None Degree: None Facial Edema: None Fall Risk Assessment History of Falling: (0) No Secondary Diagnosis: (0) No Ambulatory Aid: (0) Bedrest/Nurse Assist IV Therapy: (0) No Gait: (0) Normal/Bedrest/Immobile Mental Status: (0) Oriented to Own Ability Fall Score: 0 Fall Risk Score Definition: No Risk: No action required Datetime: 12/19/2016 21:26 Stage of : OB Triage Time of Arrival: 12/19/2016 20:58 EGA: 29.0 Arrived By: Wheelchair Arrived From: Home Chief Complaint: CONTRACTIONS Movement: Present Time Provider Notified: 12/20/2016 22:00 Provider Notified: HADADIAN Initial Plan: FFN, CVL, SVE
== END 2017-02-03 15:56 | disposition home or self-care (01) ==
LOC: L-D 15:17 → OBT 15:17
PROVIDERS: ATTEND Obstetrics & Gynecology
DX: O41.03X0 Oligohydramnios, third trimester, not applicable or unspecified (principal); Z3A.35 35 weeks gestation of pregnancy
CPT/HCPCS: 76816; Z7500; G0463

== ENCOUNTER 2017-02-05 09:31 | Outpatient (CLI) | payer MEDICAID ==
[~2017-02-05] VITALS: Ht 154.9 cm; Wt 87.0 kg
[2017-02-05 09:45] VITALS: Ht 154.9 cm; Wt 87.0 kg
[2017-02-05 09:46] VITALS: BP 112/67; PULSE 131; RESP 18
--- NOTE | 2017-02-05 10:40 | RADRPT ---
PROCEDURE: OB ultrasound for biophysical profile. CLINICAL INDICATION: Biophysical profile. TECHNIQUE: Multiple sonographic images of the pelvis were obtained. Transabdominal view of the gr avid uterus are available for review. COMPARISON: 02/03/2017. FINDINGS: breathing movement = 2/2 tone = 2/2 motion = 2/2 YOEL = 9.6 cm Single live intrauterine with cardiac activity (161 beats per minute). IMPRESSION: 1. Single viable intrauterine gestation. 2. Biophysical profile = 8/8. 3. YOEL = 9.6 cm. RPTAT: EE .Earl Landon MD, Date Time Electronically viewed and signed by .Earl Landon MD, on 02/05/2017 10:44 .C/
--- NOTE | 2017-02-05 13:08 | TRIAGE ---
OB Triage Datetime Report Generated by CPN: 02/05/2017 13:08 Datetime: 02/05/2017 11:03 Stage of : OB Triage Datetime: 02/05/2017 10:00 Headache: Denies Blurred Vision: No RUQ Epigastric Pain: Denies Facial Edema: None Labor Evaluation Frequency: none Pattern: Normal: <= 5 Contractions in 10 Minutes Resting Tone [place]: Relaxed Heart Rate FHR Baseline Rate: 140 Monitor Mode: External US FHR Baseline Changes: No Baseline Change Variability: Moderate 6-25 bpm Accelerations: 15X15 Decelerations: None Category: Category I Vaginal Exam Membrane Status: Intact Datetime: 02/05/2017 09:50 Stage of : OB Triage Maternal Assessment Level of Consciousness: Fully Conscious DTR's/Clonus: DTRs 2+; No Clonus Headache: Denies Blurred Vision: No Respiratory Effort: Unlabored; Regular Rhythm; Equal Expansion Breath Sounds, Left: Clear and Equal Breath Sounds, Right: Clear and Equal Nausea/Vomiting: Denies RUQ Epigastric Pain: Denies Lower Extremities Edema: Bilateral Lower Extremities Degree: 1+ Upper Extremities Edema: None Degree: None Facial Edema: None Temperature Route: Axillary Fall Risk Assessment History of Falling: (0) No Secondary Diagnosis: (0) No Ambulatory Aid: (0) Bedrest/Nurse Assist IV Therapy: (0) No Gait: (0) Normal/Bedrest/Immobile Mental Status: (0) Oriented to Own Ability Fall Score: 0 Fall Risk Score Definition: No Risk: No action required Labor Evaluation Frequency: none Monitor Mode: External Heart Rate FHR Baseline Rate: 140 Monitor Mode: External US Pain Assessment Pain Scale: 0 Datetime: 02/05/2017 09:25 Time of Arrival: 02/05/2017 09:25 EGA: 35.6 Arrived By: Ambulatory Arrived From: Home Chief Complaint: NST/BPP follow up for low YOEL Movement: Present Rupture of Membranes: Denies Vaginal Bleeding: None Vaginal Discharge: Denies Recent Sexual Intercouse: Denies Abdominal Trauma: Not Applicable Patient Complaints: Other Time Provider Notified: 02/05/2017 10:46 Provider Notified: Dr Short Initial Plan: efm/ U/S Datetime: 02/03/2017 16:51 Labor Evaluation Frequency: 0 Monitor Mode: External Pattern: Normal: <= 5 Contractions in 10 Minutes Resting Tone [place]: Relaxed Heart Rate FHR Baseline Rate: 130 Monitor Mode: External US Variability: Moderate 6-25 bpm Accelerations: 15X15 Decelerations: None Category: Category I Datetime: 02/03/2017 15:46 Fall Score: 0 Fall Risk Score Definition: No Risk: No action required Datetime: 02/03/2017 15:45 EGA: 35.4 Datetime: 02/02/2017 08:02 Fall Score: 20 Fall Risk Score Definition: No Risk: No action required Datetime: 02/01/2017 19:36 Fall Score: 0 Fall Risk Score Definition: No Risk: No action required Datetime: 02/01/2017 07:24 Fall Score: 20 Fall Risk Score Definition: No Risk: No action required Datetime: 01/31/2017 20:04 Fall Score: 20 Fall Risk Score Definition: No Risk: No action required Datetime: 01/31/2017 13:47 Fall Score: 0 Fall Risk Score Definition: No Risk: No action required Datetime: 01/31/2017 13:42 EGA: 35.1 Datetime: 12/19/2016 21:30 Fall Score: 0 Fall Risk Score Definition: No Risk: No action required Datetime: 12/19/2016 21:26 EGA: 29.0
--- NOTE | 2017-03-23 19:06 | PN ---
Triage Information Date/Time 02/05/17 Weeks of Gestation 35 : 3 Para: 2 Assessment/Plan low hari BRIANNE BENEDICT MD Mar 23, 2017 19:06
== END 2017-02-05 11:05 | disposition home or self-care (01) ==
LOC: L-D 09:31 → OBT 09:31
PROVIDERS: ATTEND Obstetrics & Gynecology
DX: O41.93X0 Disorder of amniotic fluid and membranes, unspecified, third trimester, not applicable or unspecified (principal); Z3A.35 35 weeks gestation of pregnancy
CPT/HCPCS: 76818; Z7500; G0463

== ENCOUNTER 2017-02-08 10:20 | Outpatient (CLI) | payer MEDICAID ==
[~2017-02-08] VITALS: Ht 154.9 cm; Wt 86.5 kg
[2017-02-08 10:25] VITALS: BP 103/69; PULSE 116; RESP 18
[2017-02-08 10:26] VITALS: Ht 154.9 cm; Wt 86.5 kg
--- NOTE | 2017-02-08 11:11 | RADRPT ---
PROCEDURE: US OB biophysical profile. CLINICAL INDICATION: decreased movements, low YOEL TECHNIQUE: Multiple sonographic images of the pelvis were obtained. The images were reviewed on a PACS workstation. COMPARISON: No prior studies are available for comparison. FINDINGS: There is a single viable intrauterine gestation. Cardiac activity is present with 139 beats per min [place]. There is a vertex presentation. The placenta is anterior. There is no evidence of placental abruption. There is a slightly decreased amount of amniotic fluid with an YOEL = 7.9 cm. Biophysical profile: movement 2/2 tone 2/2. breathing 2/2 YOEL 2/2 Total 04/11 RPTAT: AA . IMPRESSION: Normal biophysical profile. Borderline oligohydramnios. . .Gera Sanchez MD, MD Date Time Electronically viewed and signed by .Gera Sanchez MD, MD on 02/08/2017 11:11 .S/
[2017-02-08] MEDS ORDERED: LACTATED RINGER'S 1,000 ML IV SCH (11:30)
--- NOTE | 2017-02-08 14:08 | RADRPT ---
PROCEDURE: US OB. CLINICAL INDICATION: Low YOEL , pain TECHNIQUE: Transabdominal views of the pelvis are available for review. COMPARISON: 02/08/2017 FINDINGS: There is a single intrauterine gestation in a vertex position. The heart rate is noted at 154 bpm. The placenta is anterior. The YOEL measures 7.9 cm. RPTAT: AA IMPRESSION: Borderline oligohydramnios, unchanged. .Gera Sanchez MD, MD Date Time Electronically viewed and signed by .Gera Sanchez MD, MD on 02/08/2017 14:08 .S/
--- NOTE | 2017-02-08 16:20 | TRIAGE ---
OB Triage Datetime Report Generated by CPN: 02/08/2017 16:19 Datetime: 02/08/2017 16:00 Labor Evaluation Frequency: 0 Monitor Mode: External Pattern: Normal: <= 5 Contractions in 10 Minutes Resting Tone [place]: Relaxed Heart Rate FHR Baseline Rate: 120 Monitor Mode: External US Variability: Moderate 6-25 bpm Accelerations: 15X15 Decelerations: None Category: Category I Datetime: 02/08/2017 13:54 Labor Evaluation Frequency: 0 Monitor Mode: External Pattern: Normal: <= 5 Contractions in 10 Minutes Resting Tone [place]: Relaxed Heart Rate FHR Baseline Rate: 120 Monitor Mode: External US Variability: Moderate 6-25 bpm Accelerations: 15X15 Decelerations: None Category: Category I Pain Assessment Pain Presence: None/Denies Datetime: 02/08/2017 13:05 Labor Evaluation Frequency: 0 Monitor Mode: External Pattern: Normal: <= 5 Contractions in 10 Minutes Resting Tone [place]: Relaxed Heart Rate FHR Baseline Rate: 120 Monitor Mode: External US Variability: Moderate 6-25 bpm Accelerations: 15X15 Decelerations: None Category: Category I Datetime: 02/08/2017 12:24 Labor Evaluation Frequency: 0 Monitor Mode: External Pattern: Normal: <= 5 Contractions in 10 Minutes Resting Tone [place]: Relaxed Heart Rate FHR Baseline Rate: 135 Monitor Mode: External US Variability: Moderate 6-25 bpm Accelerations: 15X15 Decelerations: None Category: Category I Datetime: 02/08/2017 11:45 Comments: baby moving constantly Datetime: 02/08/2017 10:41 Labor Evaluation Frequency: 0 Monitor Mode: External Pattern: Normal: <= 5 Contractions in 10 Minutes Resting Tone [place]: Relaxed Heart Rate FHR Baseline Rate: 140 Monitor Mode: External US Variability: Moderate 6-25 bpm Accelerations: 15X15 Decelerations: None Category: Category I Datetime: 02/08/2017 10:29 Assessment Type: Admission Assessment Maternal Assessment Level of Consciousness: Fully Conscious DTR's/Clonus: DTRs 2+; No Clonus Headache: Denies Blurred Vision: No Respiratory Effort: Unlabored; Regular Rhythm; Equal Expansion Breath Sounds, Left: Clear and Equal Breath Sounds, Right: Clear and Equal Nausea/Vomiting: Denies RUQ Epigastric Pain: Denies Lower Extremities Edema: None Degree: None Upper Extremities Edema: None Degree: None Facial Edema: None Fall Risk Assessment History of Falling: (0) No Secondary Diagnosis: (0) No Ambulatory Aid: (0) Bedrest/Nurse Assist IV Therapy: (0) No Gait: (0) Normal/Bedrest/Immobile Mental Status: (0) Oriented to Own Ability Fall Score: 0 Fall Risk Score Definition: No Risk: No action required Datetime: 02/08/2017 10:28 Time of Arrival: 02/08/2017 10:10 EGA: 36.2 Arrived By: Ambulatory Arrived From: Home Chief Complaint: REPEAT YOEL, HISTORY OF LOW YOEL Movement: Present Contractions: Denies/Absent Rupture of Membranes: Denies Vaginal Bleeding: None Vaginal Discharge: Denies Recent Sexual Intercouse: Denies Abdominal Trauma: Not Applicable Patient Complaints: None Time Provider Notified: 02/08/2017 11:19 Provider Notified: DR. BENEDICT Initial Plan: TOCO/US, YOEL-7.9, IV HYDRATION 500CC. REPEAT YOEL AFTER IV HYDRATION Datetime: 02/08/2017 10:24 Stage of : OB Triage Pain Assessment Pain Presence: None/Denies Datetime: 02/05/2017 09:50 Fall Score: 0 Fall Risk Score Definition: No Risk: No action required Datetime: 02/05/2017 09:25 EGA: 35.6 Datetime: 02/03/2017 15:46 Fall Score: 0 Fall Risk Score Definition: No Risk: No action required Datetime: 02/03/2017 15:45 EGA: 35.4 Datetime: 02/02/2017 08:02 Fall Score: 20 Fall Risk Score Definition: No Risk: No action required Datetime: 02/01/2017 19:36 Fall Score: 0 Fall Risk Score Definition: No Risk: No action required Datetime: 02/01/2017 07:24 Fall Score: 20 Fall Risk Score Definition: No Risk: No action required Datetime: 01/31/2017 20:04 Fall Score: 20 Fall Risk Score Definition: No Risk: No action required Datetime: 01/31/2017 13:47 Fall Score: 0 Fall Risk Score Definition: No Risk: No action required Datetime: 01/31/2017 13:42 EGA: 35.1 Datetime: 12/19/2016 21:30 Fall Score: 0 Fall Risk Score Definition: No Risk: No action required Datetime: 12/19/2016 21:26 EGA: 29.0
--- NOTE | 2017-02-08 22:20 | PN ---
Triage Information Date/Time 02/08/2017 Weeks of Gestation 36 weeks and 2 days : 3 Para: 2 Diabetes: none Hypertention: none Additional information Patient is a 36-year-old female with IUP at 36 weeks and 2 days she was noted, during her ultrasound to have low YOEL, 5 recently. Had been monitoring after hydration for adequacy of amniotic fluid. Patient was sent here for IV hydration and repeat YOEL. She had an YOEL about 4 days ago that was 9.6. And today prior and after IV hydration remained at 7.9. She denies any complaint. She does not have any decreased movement, leaking of fluid or vaginal bleeding or contraction. Objective Vital Signs Date Time Temp Pulse Resp B/P Pulse Ox O2 Delivery O2 Flow Rate FiO2 02/08/17 10:25 97.8 116 18 103/69 Room Air Exam General appearance: Alert and oriented 4 patient does not appear to be in any acute distress Abdomen: Soft, gravid, fundal height consistent with gestational age NST: Category 1 Extremities: No calf tenderness, no click no edema YOEL 7.1 Assessment/Plan IUP at 36 weeks and 2 days History of low YOEL YOEL currently borderline. 7.9 NST reassuring and category 1 Patient was advised but hydration and return to triage tomorrow again for repeat YOEL Strict labor precaution and kick count discussed Advised to return to triage if she has any decreased movement leaking of fluid contraction or any other concern. Patient verbalized understanding and agrees to comply with instructions. CYNTHIA ABDUL MD Feb 08, 2017 22:20
== END 2017-02-08 16:25 | disposition home or self-care (01) ==
LOC: L-D 10:20 → OBT 10:20
PROVIDERS: ATTEND Obstetrics & Gynecology
DX: O41.03X0 Oligohydramnios, third trimester, not applicable or unspecified (principal); O36.8130 Decreased fetal movements, third trimester, not applicable or unspecified; Z3A.36 36 weeks gestation of pregnancy
CPT/HCPCS: 76816; 96360; 96361; J7120; Z7500; G0463

== ENCOUNTER 2017-02-09 17:04 | Outpatient (CLI) | payer MEDICAID ==
[~2017-02-09] VITALS: Ht 154.9 cm; Wt 87.6 kg
[2017-02-09 17:43] VITALS: Ht 154.9 cm; Wt 87.6 kg
[2017-02-09 17:44] VITALS: BP 117/72; PULSE 74
--- NOTE | 2017-02-09 19:30 | RADRPT ---
PROCEDURE: Biophysical profile CLINICAL INDICATION: distress, contractions. TECHNIQUE: Color and burton-scale ultrasound images of an intrauterine gestation were obtained. COMPARISON: February 05, 2017 FINDINGS: A single live intrauterine gestation is identified in second position with an estimated heart rate of 132 beats per minute. The placenta is located anteriorly and has a grade up to. The cervix appears closed and measures approximately 3.9 cm in length. No evidence of previa or abruption geovnany ntified. YOEL is 6.9 cm. movement 2/2. tone 2/2. breathing movement 2/2. Qualitative AFV 2/2 Total biophysical profile 04/11 IMPRESSION: 04/11 biophysical profile. Closed cervix measuring 3.9 cm in length. RPTAT: AA .Leon Palma MD, MD Date Time Electronically viewed and signed by .Leon Palma MD, on 02/09/2017 19:29 .P/
--- NOTE | 2017-02-09 21:25 | QN ---
Documentation Comment 36 y.o at 36w3d for f/u low YOEL which was 9.6 on 02/05/17, 7.9 on 02/08/17 which was done after hydration today BPP 04/11 YOEL 6.9 CVL was done due to c/o pelvic pressure which was 3.9 plan f/u in 2days for YOEL encourage to increase fluid intake BEBETO VICENTE MD Feb 09, 2017 21:25
--- NOTE | 2017-02-09 23:54 | TRIAGE ---
OB Triage Datetime Report Generated by CPN: 02/09/2017 23:54 Datetime: 02/09/2017 20:49 Stage of : OB Triage Datetime: 02/09/2017 20:00 Stage of : OB Triage Frequency: 0 Monitor Mode: External Resting Tone [place]: Relaxed FHR Baseline Rate: 120 Monitor Mode: External US FHR Baseline Changes: No Baseline Change Variability: Moderate 6-25 bpm Accelerations: 15X15 Decelerations: None Category: Category I Datetime: 02/09/2017 18:19 Stage of : OB Triage Datetime: 02/09/2017 17:39 Stage of : OB Triage Assessment Type: Triage Level of Consciousness: Fully Conscious DTR's/Clonus: DTRs 2+; No Clonus Headache: Denies Blurred Vision: No Respiratory Effort: Unlabored; Regular Rhythm; Equal Expansion Breath Sounds, Left: Clear and Equal Breath Sounds, Right: Clear and Equal Nausea/Vomiting: Denies RUQ Epigastric Pain: Denies Facial Edema: None Temperature Route: Axillary History of Falling: (0) No Secondary Diagnosis: (0) No Ambulatory Aid: (0) Bedrest/Nurse Assist IV Therapy: (0) No Gait: (0) Normal/Bedrest/Immobile Mental Status: (0) Oriented to Own Ability Fall Score: 0 Fall Risk Score Definition: No Risk: No action required Frequency: 0 Monitor Mode: External FHR Baseline Rate: APPLIED Monitor Mode: External US Pain Scale: 5 Pain Presence: Intermittent Pain Type: Cramping Pain Location: Abdomen Pain Goal: 3 Pain Relief Measures: Comfort Measures Datetime: 02/09/2017 17:37 Time of Arrival: 02/09/2017 17:00 EGA: 36.3 Arrived By: Ambulatory Arrived From: Home Chief Complaint: BIWEEKLY NST FOR LOW YOEL, VAG PRESSURE, DENIES BLEEDING OR LEAKING OF FLUID Movement: Present Contractions: Denies/Absent Rupture of Membranes: Denies Vaginal Bleeding: None Vaginal Discharge: Denies Recent Sexual Intercouse: Denies Abdominal Trauma: Not Applicable Patient Complaints: Cramping Time Provider Notified: 02/09/2017 20:30 Provider Notified: CINTHIA Initial Plan: VS, NST, BPP, CERVICAL LENGTH Datetime: 02/08/2017 16:00 Pain Presence: None/Denies
== END 2017-02-09 21:08 | disposition home or self-care (01) ==
LOC: L-D 17:04 → OBT 17:04
PROVIDERS: ATTEND Obstetrics & Gynecology
DX: O41.03X0 Oligohydramnios, third trimester, not applicable or unspecified (principal); O26.893 Other specified pregnancy related conditions, third trimester; R10.2 Pelvic and perineal pain; O09.523 Supervision of elderly multigravida, third trimester; Z3A.36 36 weeks gestation of pregnancy
CPT/HCPCS: 76817; 76818; Z7500; G0463

== ENCOUNTER 2017-02-11 10:50 | Outpatient (CLI) | payer MEDICAID ==
[~2017-02-11] VITALS: Ht 154.9 cm; Wt 87.4 kg
[2017-02-11 11:15] VITALS: Ht 154.9 cm; Wt 87.4 kg
[2017-02-11 11:16] VITALS: BP 122/65; PULSE 96; RESP 18
--- NOTE | 2017-02-11 11:43 | RADRPT ---
PROCEDURE: US OB. CLINICAL INDICATION: Low YOEL TECHNIQUE: Transabdominal views of the pelvis are available for review. COMPARISON: Obstetrical ultrasound from 02/09/2017 FINDINGS: There is a single intrauterine gestation in a vertex position. The heart rate is present at 132 bpm. The placenta is anterior. There is no evidence of placenta previa or a placental abruption. The YOEL measures 10.2 cm. RPTAT: AA IMPRESSION: Normal YOEL of 10.2 cm, compared with an YOEL of 6.9 cm on 02/09/2017. Physician Waylon Date Time Electronically viewed and signed by Physician Waylon on 02/11/2017 11:42 /
--- NOTE | 2017-02-11 12:38 | PN ---
Date/Time of Note Date/Time of Note DATE: 02/11/17 TIME: 12:32 OB Subjective Subjective Subjective 3 para 2 at 36+5 weeks of gestation She is here for repeat YOEL check Patient had previously been admitted to antepartum for low YOEL Her YOEL level fluctuates between 6-10 Patient reports positive movement, no vaginal bleeding, no contractions She denies leaking fluid OB Objective Objective Objective YOEL today 10.2 PROCEDURE: US OB. CLINICAL INDICATION: Low YOEL TECHNIQUE: Transabdominal views of the pelvis are available for review. COMPARISON: Obstetrical ultrasound from 02/09/2017 FINDINGS: There is a single intrauterine gestation in a vertex position. The heart rate is present at 132 bpm. The placenta is anterior. There is no evidence of placenta previa or a placental abruption. The YOEL measures 10.2 cm. RPTAT: AA IMPRESSION: Normal YOEL of 10.2 cm, compared with an YOEL of 6.9 cm on 02/09/2017. Physician Waylon Date Time Electronically viewed and signed by Physician Waylon on 02/11/2017 11:42 RA/ CC: GWENDOLYN RUSH MD HEENT: WNL Heart: Rhythm Normal Lungs: Clear, Equal Abdomen: WNL Extremities: Normal Reflexes: Normal Heart Rate: 140's Accelerations: Accelerations Present Decelerations: No Decelerations Contractions on Admission: None OB Assessment/Plan Other Assessment: Patient is a 36.5 weeks of gestation Here for evaluation of YOEL Other plan: YOEL level today within normal limits Patient instructed to return on Tuesday, February 14, 2017 for repeat YOEL and NST Patient has scheduled an appointment with Dr. Short on Friday, February 17, 2017 GWENDOLYN RUSH MD Feb 11, 2017 12:38
--- NOTE | 2017-02-11 12:42 | TRIAGE ---
OB Triage Datetime Report Generated by CPN: 02/11/2017 12:42 Datetime: 02/11/2017 12:24 Stage of : OB Triage Datetime: 02/11/2017 12:14 Stage of : OB Triage Datetime: 02/11/2017 11:30 Frequency: 0 Monitor Mode: External Resting Tone [place]: Relaxed Contraction Comments: DENIES FEELING ANY AT THIS TIME FHR Baseline Rate: 140 Monitor Mode: External US FHR Baseline Changes: No Baseline Change Variability: Moderate 6-25 bpm Accelerations: 15X15 Decelerations: None Category: Category I Datetime: 02/11/2017 11:12 Assessment Type: Triage Level of Consciousness: Fully Conscious DTR's/Clonus: DTRs 2+; No Clonus Headache: Denies Blurred Vision: No Respiratory Effort: Unlabored; Regular Rhythm; Equal Expansion Breath Sounds, Left: Clear and Equal Breath Sounds, Right: Clear and Equal Nausea/Vomiting: Denies RUQ Epigastric Pain: Denies Lower Extremities Edema: Bilateral Lower Extremities Degree: 1+ Upper Extremities Edema: None Facial Edema: None History of Falling: (0) No Secondary Diagnosis: (0) No Ambulatory Aid: (0) Bedrest/Nurse Assist IV Therapy: (0) No Gait: (0) Normal/Bedrest/Immobile Mental Status: (0) Oriented to Own Ability Fall Score: 0 Fall Risk Score Definition: No Risk: No action required Datetime: 02/11/2017 11:10 Time of Arrival: 02/11/2017 10:46 EGA: 36.5 Arrived By: Ambulatory Arrived From: Home Movement: Present Contractions: Denies/Absent Rupture of Membranes: Denies Vaginal Bleeding: None Vaginal Discharge: Denies Recent Sexual Intercouse: Denies Abdominal Trauma: Not Applicable Patient Complaints: None Time Provider Notified: 02/11/2017 12:24 Provider Notified: Marshall Initial Plan: ROGER, Veronica, YOEL
== END 2017-02-11 12:36 | disposition home or self-care (01) ==
LOC: L-D 10:50 → OBT 10:50
PROVIDERS: ATTEND Obstetrics & Gynecology
DX: O26.893 Other specified pregnancy related conditions, third trimester (principal); Z3A.35 35 weeks gestation of pregnancy
CPT/HCPCS: 76815; Z7500; G0463

== ENCOUNTER 2017-02-14 09:17 | Outpatient (CLI) | payer MEDICAID ==
[~2017-02-14] VITALS: Ht 154.9 cm; Wt 87.2 kg
[~2017-02-14 09:17] MED LIST changes: -ALBU8.5H3 INH
[2017-02-14 09:27] VITALS: Ht 154.9 cm; Wt 87.2 kg
[2017-02-14 09:43] VITALS: BP 112/69; PULSE 86
--- NOTE | 2017-02-14 10:29 | RADRPT ---
PROCEDURE: US OB biophysical profile. CLINICAL INDICATION: decreased movements, low YOEL TECHNIQUE: Multiple sonographic images of the pelvis were obtained. The images were reviewed on a PACS workstation. COMPARISON: 02/11/17 FINDINGS: There is a single viable intrauterine gestation. Cardiac activity is present with 152 beats per min [place]. There is a vertex presentation. The placenta is anterior. There is no evidence of placental abruption. There is a decreased amount of amniotic fluid with an YOEL = 7.5 cm. Biophysical profile: movement 2/2 tone 2/2. breathing 2/2 YOEL 2/2 Total 04/11 RPTAT: AA . IMPRESSION: Normal biophysical profile. Decreased amount of amniotic fluid with an YOEL = 7.5 cm. . .Gera Sanchez MD, Date Time Electronically viewed and signed by .Gera Sanchez MD, MD on 02/14/2017 10:28 .S/
[2017-02-14] MEDS ORDERED: LACTATED RINGER'S 1,000 ML IV SCH (12:30)
--- NOTE | 2017-02-14 16:10 | RADRPT ---
PROCEDURE: US OB. CLINICAL INDICATION: Low YOEL , pain TECHNIQUE: Transabdominal views of the pelvis are available for review. COMPARISON: 02/14/17 FINDINGS: The YOEL measures 9.8 cm. RPTAT: AA IMPRESSION: Normal YOEL. .Gera Sanchez MD, Date Time Electronically viewed and signed by .Gera Sanchez MD, on 02/14/2017 16:10 .S/
--- NOTE | 2017-02-14 17:04 | QN ---
Documentation Comment This is a 36 years old female 3 para 2 EDC of March 10 makes her 37 weeks and 1 day seen at the triage unit follow-up for the low YOEL her YOEL on February 09 was 6.9 with hydration went up to 10.2 on February 11, today her YOEL after hydration with bolus of 500 cc of LR gray to 9.8 the rest of the biophysical profile was 8 out of 8 patient advised to return in 24 hours to repeat A FI , hydration at home encouraged. BRIANNE BENEDICT MD Feb 14, 2017 17:04
== END 2017-02-14 16:40 | disposition home or self-care (01) ==
LOC: L-D 09:17 → OBT 09:17
PROVIDERS: ATTEND Obstetrics & Gynecology
DX: O41.03X0 Oligohydramnios, third trimester, not applicable or unspecified (principal); O09.523 Supervision of elderly multigravida, third trimester; Z3A.37 37 weeks gestation of pregnancy
CPT/HCPCS: 36415; 76815; 76818; 84112; J7120; Z7500; G0463

== ENCOUNTER 2017-02-15 18:07 | Outpatient (CLI) | payer MEDICAID ==
[~2017-02-15] VITALS: Ht 154.9 cm; Wt 88.3 kg
[2017-02-15 18:21] VITALS: Ht 154.9 cm; Wt 88.3 kg
--- NOTE | 2017-02-15 19:26 | RADRPT ---
PROCEDURE: US OB. CLINICAL INDICATION: Low YOEL TECHNIQUE: Transabdominal views of the pelvis are available for review. COMPARISON: Obstetrical ultrasound from 02/14/2017 FINDINGS: There is a single intrauterine gestation in a vertex position. The heart rate is present at 136 bpm. The placenta is anterior. There is no evidence of placenta previa or a placental abruption. The YOEL measures 9.8 cm. RPTAT: AA IMPRESSION: Normal YOEL. Physician Waylon Date Time Electronically viewed and signed by Denilson Pritchett Physician on 02/15/2017 19:26 RA/
[2017-02-15 19:31] VITALS: BP 107/66; PULSE 81; RESP 18
[2017-02-15 20:23] LABS: URINE BLOOD (Dip) POC Trace-lysed (NEGATIVE)
--- NOTE | 2017-02-15 20:23 | TRIAGE ---
OB Triage Datetime Report Generated by CPN: 02/15/2017 20:23 Datetime: 02/15/2017 19:06 Comments: MONITORS OFF POST REACTIVE NST, AWAITING U/S RESULTS. Datetime: 02/15/2017 18:55 Comments: YOEL 9.7 Datetime: 02/15/2017 18:27 Assessment Type: Triage Maternal Assessment Level of Consciousness: Fully Conscious DTR's/Clonus: DTRs 2+; No Clonus Headache: Denies Blurred Vision: No Respiratory Effort: Unlabored; Regular Rhythm; Equal Expansion Breath Sounds, Left: Clear and Equal Breath Sounds, Right: Clear and Equal Nausea/Vomiting: Denies RUQ Epigastric Pain: Denies Lower Extremities Edema: None Degree: None Upper Extremities Edema: None Degree: None Facial Edema: None Fall Risk Assessment History of Falling: (0) No Secondary Diagnosis: (0) No Ambulatory Aid: (0) Bedrest/Nurse Assist IV Therapy: (0) No Gait: (0) Normal/Bedrest/Immobile Mental Status: (0) Oriented to Own Ability Fall Score: 0 Fall Risk Score Definition: No Risk: No action required Datetime: 02/15/2017 18:24 Time of Arrival: 02/15/2017 18:07 EGA: 37.2 Arrived By: Ambulatory Arrived From: Home Chief Complaint: FOLLOW UP YOEL Movement: Present Contractions: Occasional Rupture of Membranes: Denies Vaginal Bleeding: None Vaginal Discharge: Denies Recent Sexual Intercouse: Denies Abdominal Trauma: Not Applicable Patient Complaints: Other Time Provider Notified: 02/15/2017 19:50 Provider Notified: ARDALAN Initial Plan: NST/YOEL Datetime: 02/15/2017 18:17 Monitor Mode: External Monitor Mode: External US Datetime: 02/14/2017 16:17 Stage of : OB Triage Datetime: 02/14/2017 15:28 Labor Evaluation Frequency: 0 Monitor Mode: External Resting Tone Colony: Relaxed Heart Rate FHR Baseline Rate: 125 Monitor Mode: External US Variability: Moderate 6-25 bpm Accelerations: 10X10 Decelerations: None Category: Category I Pain Assessment Pain Scale: 0 Pain Presence: None/Denies Pain Type: N/A Pain Goal: 3 Pain Relief Measures: Comfort Measures Datetime: 02/14/2017 14:31 Labor Evaluation Frequency: 0 Monitor Mode: External Resting Tone Colony: Relaxed Heart Rate FHR Baseline Rate: 135 Monitor Mode: External US Variability: Moderate 6-25 bpm Accelerations: 10X10 Decelerations: None Category: Category I Pain Assessment Pain Scale: 0 Pain Presence: None/Denies Pain Type: N/A Pain Goal: 3 Pain Relief Measures: Comfort Measures Datetime: 02/14/2017 13:33 Labor Evaluation Frequency: 0 Monitor Mode: External Resting Tone Colony: Relaxed Heart Rate FHR Baseline Rate: 145 Monitor Mode: External US Variability: Moderate 6-25 bpm Accelerations: 10X10 Decelerations: None Category: Category I Pain Assessment Pain Scale: 0 Pain Presence: None/Denies Pain Type: N/A Pain Goal: 3 Pain Relief Measures: Comfort Measures Datetime: 02/14/2017 12:41 Labor Evaluation Frequency: 0 Monitor Mode: External Resting Tone Colony: Relaxed Heart Rate FHR Baseline Rate: 130 Monitor Mode: External US Variability: Moderate 6-25 bpm Decelerations: None Category: Category I Pain Assessment Pain Scale: 0 Pain Presence: None/Denies Pain Type: N/A Pain Goal: 3 Pain Relief Measures: Comfort Measures Datetime: 02/14/2017 11:41 Labor Evaluation Frequency: 0 Monitor Mode: External Resting Tone Colony: Relaxed Heart Rate FHR Baseline Rate: 135 Monitor Mode: External US Variability: Moderate 6-25 bpm Accelerations: 10X10 Decelerations: None Category: Category I Pain Assessment Pain Scale: 0 Pain Presence: None/Denies Pain Goal: 3 Pain Relief Measures: Comfort Measures Datetime: 02/14/2017 10:41 Stage of : OB Triage Labor Evaluation Frequency: 0 Monitor Mode: External Resting Tone Colony: Relaxed Heart Rate FHR Baseline Rate: 145 Monitor Mode: External US Variability: Moderate 6-25 bpm Accelerations: 10X10 Decelerations: None Category: Category I Pain Assessment Pain Scale: 0 Pain Presence: None/Denies Pain Type: N/A Pain Goal: 3 Pain Relief Measures: Comfort Measures Datetime: 02/14/2017 09:40 Stage of : OB Triage Assessment Type: Triage Maternal Assessment Level of Consciousness: Fully Conscious DTR's/Clonus: DTRs 2+; No Clonus Headache: Denies Blurred Vision: No Respiratory Effort: Unlabored; Regular Rhythm; Equal Expansion Breath Sounds, Left: Clear and Equal Breath Sounds, Right: Clear and Equal Nausea/Vomiting: Denies RUQ Epigastric Pain: Denies Facial Edema: None Temperature Route: Axillary Fall Risk Assessment History of Falling: (0) No Secondary Diagnosis: (0) No Ambulatory Aid: (0) Bedrest/Nurse Assist IV Therapy: (0) No Gait: (0) Normal/Bedrest/Immobile Mental Status: (0) Oriented to Own Ability Fall Score: 0 Fall Risk Score Definition: No Risk: No action required Labor Evaluation Frequency: 0 Monitor Mode: External Pattern: Normal: <= 5 Contractions in 10 Minutes Heart Rate FHR Baseline Rate: 145 Monitor Mode: External US Variability: Moderate 6-25 bpm Decelerations: None Category: Category I Pain Assessment Pain Scale: 0 Pain Presence: None/Denies Pain Type: N/A Pain Goal: 3 Pain Relief Measures: Comfort Measures Datetime: 02/14/2017 09:39 Time of Arrival: 02/14/2017 09:10 EGA: 37.1 Arrived By: Ambulatory Arrived From: Home Chief Complaint: FOLLOW UP YOEL, DENIES LEAKING, BLEEDING OR UC'S Movement: Present Contractions: Denies/Absent Rupture of Membranes: Denies Vaginal Bleeding: None Vaginal Discharge: Denies Recent Sexual Intercouse: Denies Abdominal Trauma: Not Applicable Patient Complaints: None Time Provider Notified: 02/14/2017 12:22 Provider Notified: [facility] Initial Plan: MONITOR, BPP/YOEL, IV HYDRATION, ROM PLUS Datetime: 02/11/2017 11:12 Fall Score: 0 Fall Risk Score Definition: No Risk: No action required Datetime: 02/11/2017 11:10 EGA: 36.5 Datetime: 02/09/2017 17:39 Fall Score: 0 Fall Risk Score Definition: No Risk: No action required Datetime: 02/09/2017 17:37 EGA: 36.3 Datetime: 02/08/2017 10:29 Fall Score: 0 Fall Risk Score Definition: No Risk: No action required Datetime: 02/08/2017 10:28 EGA: 36.2 Datetime: 02/05/2017 09:50 Fall Score: 0 Fall Risk Score Definition: No Risk: No action required Datetime: 02/05/2017 09:25 EGA: 35.6 Datetime: 02/03/2017 15:46 Fall Score: 0 Fall Risk Score Definition: No Risk: No action required Datetime: 02/03/2017 15:45 EGA: 35.4 Datetime: 02/02/2017 08:02 Fall Score: 20 Fall Risk Score Definition: No Risk: No action required Datetime: 02/01/2017 19:36 Fall Score: 0 Fall Risk Score Definition: No Risk: No action required Datetime: 02/01/2017 07:24 Fall Score: 20 Fall Risk Score Definition: No Risk: No action required Datetime: 01/31/2017 20:04 Fall Score: 20 Fall Risk Score Definition: No Risk: No action required Datetime: 01/31/2017 13:47 Fall Score: 0 Fall Risk Score Definition: No Risk: No action required Datetime: 01/31/2017 13:42 EGA: 35.1 Datetime: 12/19/2016 21:30 Fall Score: 0 Fall Risk Score Definition: No Risk: No action required Datetime: 12/19/2016 21:26 EGA: 29.0
--- NOTE | 2017-02-15 23:51 | PN ---
Triage Information Date/Time February 15, 2017 Weeks of Gestation 37 weeks and 2 days : 3 Para: 2 Diabetes: none Hypertention: none Additional information 36-year-old with IUP at 37 weeks and 2 days with history of 2 and history of oligohydramnios in prior and borderline low YOEL in current here today for repeat YOEL. She was seen in triage 2 days ago and her YOEL was 9.8. Today's YOEL 9.8 as well. She had a Subramanian as well as 7.5 in the last week. She denies any leaking of fluid, vaginal bleeding or decreased movement. Her otherwise was non-complicated. Reports some suprapubic pain. Denies any urinary symptoms. Objective Vital Signs Date Time Temp Pulse Resp B/P Pulse Ox O2 Delivery O2 Flow Rate FiO2 02/15/17 19:31 98.0 81 18 107/66 Room Air Exam GA: Alert and oriented 4. Does not appear to be in any acute distress. Abdomen: Soft, nontender, fundal height consistent with gestational age. No suprapubic tenderness, no CVA tenderness. No guarding, no rigidity, NST: Category 1 YOEL: 9.8 Results/Medications Results 24 hrs Laboratory Tests Test 02/15/17 20:26 Bedside Urine pH (LAB) 6.5 Bedside Urine Protein (LAB) Negative Bedside Urine Glucose (UA) Negative Bedside Urine Ketones (LAB) Negative Bedside Urine Blood Trace-lysed H Bedside Urine Nitrite (LAB) Negative Bedside Urine Leukocyte Esterase (L Negative Imaging Results PROCEDURE: US OB. CLINICAL INDICATION: Low YOEL TECHNIQUE: Transabdominal views of the pelvis are available for review. COMPARISON: Obstetrical ultrasound from 02/14/2017 FINDINGS: There is a single intrauterine gestation in a vertex position. The heart rate is present at 136 bpm. The placenta is anterior. There is no evidence of placenta previa or a placental abruption. The YOEL measures 9.8 cm. RPTAT: AA IMPRESSION: Normal YOEL. Assessment/Plan IUP at 37 weeks and 2 days History of 2 History of oligohydramnios in prior History of borderline undergoing current , resolved with hydration Suprapubic pain, no urinary symptoms, UA negative DC home Follow-up with OB office in the next 24-48 hours RT to triage as needed any concern CYNTHIA ABDUL MD 14, 2017 23:51
== END 2017-02-15 20:30 | disposition home or self-care (01) ==
LOC: L-D 18:07 → OBT 18:07 → L-D 18:08 → OBT 20:30
PROVIDERS: ATTEND Obstetrics & Gynecology
DX: O41.03X0 Oligohydramnios, third trimester, not applicable or unspecified (principal); Z3A.37 37 weeks gestation of pregnancy
CPT/HCPCS: 76816; 81003; G0463

== ENCOUNTER 2017-02-22 19:17 | Inpatient (IN) | payer MEDICAID ==
[~2017-02-22] VITALS: Ht 154.9 cm; Wt 86.8 kg
[2017-02-22 19:40] VITALS: Ht 154.9 cm; Wt 86.8 kg
[2017-02-22] MEDS ORDERED: TERBUTALINE 1 MG/ML INJ SC ONE ×2 (22:00)
[2017-02-22 22:03] LABS: ADD SCAN DIFF NO
[2017-02-22 22:04] LABS: BASOPHILS % 0.3 % (0.0-2.0); EOSINOPHILS % 0.4 % (0.0-7.0); HEMATOCRIT 36.4 % (37.0-47.0); HEMOGLOBIN 12.3 g/dl (12.0-16.0); LYMPHOCYTES # 2.7 10^3/ul (0.8-2.9); MEAN CORPUSCULAR HEMOGLOBIN 27.8 pg (29.0-33.0); MEAN CORPUSCULAR HGB CONC 33.8 g/dl (32.0-37.0); MEAN CORPUSCULAR VOLUME 82.2 fl (82.0-101.0); MEAN PLATELET VOLUME 12.6 fl (7.4-10.4); MONOCYTE # 0.4 10^3/ul (0.3-0.9); MONOCYTES % 4.4 % (0.0-11.0); NEUTROPHILS % 65.1 % (39.0-77.0); PLATELET COUNT 221 10^3/UL (140-415); RED BLOOD COUNT 4.43 10^6/ul (4.20-5.40); RED CELL DISTRIBUTION WIDTH 14.3 % (11.5-14.5); WHITE BLOOD COUNT 9.2 10^3/ul (4.8-10.8)
[2017-02-22 22:20] LABS: INR 0.95; PROTIME 12.7 Sec (12.2-14.2)
[2017-02-22 22:21] LABS: PARTIAL THROMBOPLASTIN TIME 24.9 Sec (25.0-35.0)
--- NOTE | 2017-02-22 22:32 | PN ---
Triage Information Date/Time Weeks of Gestation Patient is 3 para 2 at 38+ weeks of gestation with prior history of C- section 2 She has been evaluated in triage for low YOEL Presents today with contractions, she reports positive movement : 3 Para: 2 Diabetes: none Hypertention: none Additional information Cervix closed per nurse Objective Heart Rate: 140's Heart Rate Comments Reactive Contractions: 6-10 Minutes Apart Results/Medications Result Diagram: 02/22/172109 Results 24 hrs Laboratory Tests Test 02/22/17 21:10 White Blood Count 9.2 Red Blood Count 4.43 Hemoglobin 12.3 Hematocrit 36.4 L Mean Corpuscular Volume 82.2 Mean Corpuscular Hemoglobin 27.8 L Mean Corpuscular Hemoglobin Concent 33.8 Red Cell Distribution Width 14.3 Platelet Count 221 Mean Platelet Volume 12.6 H Neutrophils % 65.1 Lymphocytes % 29.0 Monocytes % 4.4 Eosinophils % 0.4 Basophils % 0.3 Nucleated Red Blood Cells % 0.0 Neutrophils # 6.0 Lymphocytes # 2.7 Monocytes # 0.4 Eosinophils # 0.0 Basophils # 0.0 Nucleated Red Blood Cells # 0.0 Prothrombin Time 12.7 Prothrombin Time Ratio 1.0 INR International Normalized Ratio 0.95 Activated Partial Thromboplast Time 24.9 L Medications Current Medications Lactated Ringer's (Lr) 1,000 ml @ 125 mls/hr Q8H IV ; Start 02/22/17 at 20:39 Assessment/Plan 38 weeks of gestation with contractions IV fluid and terbutaline was given YOEL today is 5.9 Admit the patient to antepartum We will keep patient NPO after midnight We will plan for repeat in the a.GWENDOLYN Arora MD Feb 22, 2017 22:32
--- NOTE | 2017-02-22 22:41 | RADRPT ---
PROCEDURE: Obstetrical ultrasound greater than 14 weeks CLINICAL INDICATION: Follow-up oligohydramnios TECHNIQUE: Real time sonographic imaging of the gravid uterus is performed transabdominally and mu ltiple static burton scale and Doppler images are submitted for review as are measurements. The image s are reviewed on the PACS. COMPARISON: 02/14/2017 FINDINGS: There is a single living intrauterine gestation in cephalic presentation. The heart beat is estimated at 129 bpm. Placenta is anterior and grade2. There is no evidence of placenta previa or abruption. The amniotic fluid index is low estimated at 5.9 cm. RPTAT:HJJR IMPRESSION: 1. Single viable intrauterine gestation in cephalic presentation with the amniotic fluid index estim ated at 5.9 cm, previously 9.8 cm on the study of 02/14/2017. 2. Anterior grade II placenta without placenta previa. Physician Jennifer Date Time Electronically viewed and signed by Physician Jennifer on 02/22/2017 22:41 /
[2017-02-22] MEDS ORDERED: OXYTOCIN 30 UNITS/LR 500 ML IV SCH (23:00)
[2017-02-22] MEDS ORDERED: CEFAZOLIN 2 GM/50 ML (PMX) 50 ML IV SCH (23:00)
[2017-02-22] MEDS ORDERED: MISOPROSTOL 200 MCG TAB PR PRN (23:00)
[2017-02-22] MEDS ORDERED: CARBOPROST 250 MCG INJ IM PRN (23:00)
[2017-02-22] MEDS ORDERED: METHYLERGONOVINE 0.2 MG INJ IM PRN (23:00)
[2017-02-22] MEDS ORDERED: OXYTOCIN 30 UNITS/LR 500 ML IV PRN (23:00)
[2017-02-22 23:50] LABS: ADD UMIC YES; UR ASCORBIC ACID NEGATIVE (NEGATIVE); UR BACTERIA FEW /HPF (NONE SEEN); UR BILIRUBIN (Dip) NEGATIVE (NEGATIVE); UR BLOOD (Dip) 1+ mg/dL (NEGATIVE); UR CLARITY CLEAR (CLEAR); UR COLOR STRAW (YELLOW); UR GLUCOSE (Dip) NEGATIVE (NEGATIVE); UR KETONES (Dip) 1+ mg/dL (NEGATIVE); UR LEUKOCYTE ESTERASE (Dip) NEGATIVE Leu/ul (NEGATIVE); UR NITRITE (Dip) NEGATIVE (NEGATIVE); UR RBC 0 /HPF (0-5); UR SPECIFIC GRAVITY (Dip) 1.006 (1.003-1.030); UR SQUAMOUS EPITHELIAL CELL FEW /HPF (FEW); UR TOTAL PROTEIN (Dip) NEGATIVE (NEGATIVE); UR UROBILINOGEN (Dip) NEGATIVE (NEGATIVE)
[2017-02-23] MEDS: LACTATED RINGER'S 1,000 ML IV SCH ×5 (02:44→23:11)
[2017-02-23] MEDS ORDERED: CITRIC ACID/SODIUM CITRATE 15 ML CUP ONE (08:36)
[2017-02-23] MEDS ORDERED: morphine SULFATE/PF (10 MG/10 ML) INJ ONE (09:03)
[2017-02-23] MEDS ORDERED: FENTAnyl 50 MCG/ML VIAL ONE (09:03)
[2017-02-23] MEDS ORDERED: PHENYLephrine (100 MCG/ML) 5ML SYG ONE (09:18)
[2017-02-23] MEDS ORDERED: EPHEDrine SULFATE 50 MG/5 ML SYG ONE (09:18)
[2017-02-23] MEDS ORDERED: ONDANSETRON 4 MG INJ ONE (09:39)
[2017-02-23] MEDS ORDERED: KETOROLAC 30 MG INJ IV PRN ×2 (10:00)
[2017-02-23] MEDS ORDERED: ZOLPIDEM 5 MG TAB PO PRN (10:00)
[2017-02-23] MEDS ORDERED: FENTAnyl 50 MCG/ML VIAL IV PRN (10:00)
[2017-02-23] MEDS ORDERED: ONDANSETRON 4 MG INJ IV PRN ×2 (10:00)
[2017-02-23] MEDS ORDERED: HYDROmorphONE 1 MG/ML SYG IV PRN ×2 (10:00)
[2017-02-23] MEDS ORDERED: HYDROmorphONE (0.2 MG/ML) 10ML SYG IV PRN (10:00)
[2017-02-23] MEDS ORDERED: MEPERIDINE 25 MG INJ IV PRN (10:00)
[2017-02-23] MEDS ORDERED: CITRIC ACID/SODIUM CITRATE 15 ML CUP PO ONE (10:00)
[2017-02-23] MEDS ORDERED: NALOXONE (0.4 MG/ML) INJ IV PRN (10:00)
[2017-02-23] MEDS ORDERED: METOCLOPRAMIDE 10 MG INJ IV ONE (10:00)
[2017-02-23] MEDS ORDERED: DIPHENHYDRAMINE 50 MG INJ IV PRN ×2 (10:00)
[2017-02-23] MEDS ORDERED: PROCHLORPERAZINE 10 MG INJ IV PRN ×2 (10:00)
[2017-02-23] MEDS ORDERED: OXYTOCIN 30 UNITS/LR 500 ML IV ONE (10:02)
--- NOTE | 2017-02-23 10:24 | HP ---
Date/Time of Note Date/Time of Note DATE: 02/23/17 TIME: 10:05 OB - History Hx of Present Free Text/Dictation This is a 36 years old female EDC of April 02, 2017 history of 2 previous section and 1 ovarian cyst removal admitted to [facility] in labor being prepared to undergo repeat for the third time her course has been uneventful no gestational diabetes or -induced hypertension except that she has being followed for low YOEL (5.9) She has been under the care of the [facility] and except what mentioned above no complications during the course of her Past history [place] at the age 13 history of one ovarian cyst removal 2 previous section Allergies denies allergy to any known medication Social habit denies a smoking drinking or using any illicit drugs Review of system within normal Physical exam 5 feet 1 191 pounds total weight gain during the 15 pounds Temperature 98.2 pulse of 80 respiration 18 blood pressure 124/68 Head ears nose and throat negative Neck supple no thyromegaly Lungs clear to P&A Heart normal sinus rhythm no murmur Abdomen fundal height 37 cm from symphysis pubis heart rate category 1, vertical and transverse incisions of previous surgeries. Contraction every 10- 12 minute Pelvic exam deferred Impression intrauterine at 38 weeks and 3 day history of 2 previous C- section in labor with low YOEL. Estimated Due Date: Mar 06, 2017 : 3 Para: 2 Spontaneous : 0 Therapeutic : 0 Care: Limited Care Ultrasounds: Normal mid trimester US Obstetrical Complications: None Medical Complications: None Past Family/Social History * Past Medical, Surgical, Family and Obstetric Histories reviewed from chart. Rubella: immune RPR/VDRL: Negative GBS Status: Negative HBsAG: Negative OB Admission Exam Physical Exam HEENT: WNL Heart: Rhythm Normal Lungs: Clear, Equal Abdomen: WNL Extremities: Normal Reflexes: Normal Cervical Dilatation: None Membranes: Intact Heart Rate: 130's Accelerations: Accelerations Present Decelerations: No Decelerations Contractions on Admission: >10 Minutes Apart Intensity: Mild Last 72 hours Lab Results CBC & BMP 02/22/17 21:10 OB Assessment/Plan Reason for admission: other (38 weeks 3 days history of previous C- section rule out labor) Plan: Other (38 weeks 3 days history of 2 previous early labor with low YOEL) BRIANNE BENEDICT MD Feb 23, 2017 10:17
--- NOTE | 2017-02-23 10:44 | OPR ---
DATE OF OPERATION: 02/23/2017 PREOPERATIVE DIAGNOSES: 1. Intrauterine at 38 weeks and 3 days. 2. History of 2 previous sections. 3. In labor. POSTOPERATIVE DIAGNOSES: 1. Intrauterine at 38 weeks and 3 days. 2. History of 2 previous sections. 3. In labor. PROCEDURE PERFORMED: Repeat transverse low cervical section. SURGEON: Brianne Short MD SURGICAL SERVICES ASSISTANT: Sabrina Ogden MD ANESTHESIA: Spinal. ANESTHESIOLOGIST: Shaylee White MD FINDINGS: Live baby boy, 9 and 9, nuchal cord x1 around the baby's neck. DETAILS OF THE PROCEDURE: Under satisfactory spinal anesthesia, the patient was prepped and draped and placed in supine position, tilted to the left. Pfannenstiel incision was made, carried through the subcutaneous tissue. Bleeders were brought under control with electrocautery. Fascia incised t o the length of the incision. Rectus muscle divided in midline. Peritoneum exposed, entered throug h a transverse incision. Exploration of abdomen: Gravid uterus, extremely thinned out lower segmen t of the uterus to the thickness of 1 mm. Bladder flap gently was developed. Transverse incision w as made in the lower segment of the uterus. Amniotic sac ruptured. Clear amniotic fluid noted. Li ve baby boy was delivered from unengaged vertex with a nuchal cord x1, tight. Nasal oropharyngeal s uction was performed. Baby handed to the team for immediate attention. The patient receiv ed 20 units of Pitocin. Placenta delivered manually intact. Uterine cavity cleaned with wet sponge and drainage established. Uterus closed in 2 layers using Monocryl #1 in continuous fashion. Kallie toneal cavity irrigated with warm saline. Sponge, needle and instrument reported to be correct. Abdominal peritoneum closed with 2-0 chromic catgut continuously. Rectus muscle approximated with a few interrupted 2-0 chromic catgut. Fascia closed with #1 PDS in a continuous fashion. Subcutaneo us tissue approximated with 2-0 chromic catgut. Skin closed after revision of the old scar, stapled in the usual fashion. The patient tolerated the procedure well, transferred to recovery room in a good condition. Estimated blood loss 600 to 700 mL. Urine bag contained 200 mL of clear urine. Dictated By: BRIANNE MCCAULEY/NTS Conf#: [id number] [facility]#: [id number]
[2017-02-23 15:00] VITALS: BP 122/63; PULSE 61; RESP 18
[2017-02-23] MEDS ORDERED: OXYTOCIN 30 UNITS/LR 500 ML IV SCH (16:23)
[2017-02-23] MEDS ORDERED: OXYTOCIN 30 UNITS/LR 500 ML IV PRN (16:30)
[2017-02-23] MEDS ORDERED: OXYCODONE/ACETAMINOPHEN (5/325) TAB PO PRN (16:30)
[2017-02-23] MEDS ORDERED: CEFAZOLIN 1 GM/50 ML (PMX) 50 ML IVPB SCH (16:30)
[2017-02-23] MEDS ORDERED: METHYLERGONOVINE 0.2 MG INJ IM PRN (16:30)
[2017-02-23] MEDS ORDERED: LANOLIN 7 GM TUBE TOP PRN (16:30)
[2017-02-23] MEDS ORDERED: ACETAMINOPHEN/CODEINE #3 TAB PO PRN ×2 (16:30)
[2017-02-23] MEDS ORDERED: CARBOPROST 250 MCG INJ IM PRN (16:30)
[2017-02-23] MEDS ORDERED: MISOPROSTOL 200 MCG TAB PR PRN (16:30)
[2017-02-23 20:00] VITALS: BP 109/55; PULSE 61; RESP 18
[2017-02-23] MEDS: SENNA/DOCUSATE NA (8.6MG/50MG) TAB PO SCH (21:00)
[2017-02-24 00:43] VITALS: BP 94/50; PULSE 73; RESP 20
[2017-02-24 05:00] VITALS: BP 98/53; PULSE 70; RESP 18
[2017-02-24] MEDS: LACTATED RINGER'S 1,000 ML IV SCH ×2 (06:10→17:00)
[2017-02-24 07:11] LABS: ADD SCAN DIFF NO
[2017-02-24 07:17] LABS: BASOPHILS % 0.3 % (0.0-2.0); EOSINOPHILS # 0.1 10^3/ul (0.0-0.5); EOSINOPHILS % 0.9 % (0.0-7.0); HEMATOCRIT 30.5 % (37.0-47.0); HEMOGLOBIN 9.9 g/dl (12.0-16.0); LYMPHOCYTES # 2.3 10^3/ul (0.8-2.9); LYMPHOCYTES % 26.1 % (15.0-51.0); MEAN CORPUSCULAR HEMOGLOBIN 27.3 pg (29.0-33.0); MEAN CORPUSCULAR HGB CONC 32.5 g/dl (32.0-37.0); MEAN CORPUSCULAR VOLUME 84.3 fl (82.0-101.0); MEAN PLATELET VOLUME 12.6 fl (7.4-10.4); MONOCYTE # 0.6 10^3/ul (0.3-0.9); MONOCYTES % 6.5 % (0.0-11.0); NEUTROPHIL # 5.9 10^3/ul (1.6-7.5); NEUTROPHILS % 65.6 % (39.0-77.0); PLATELET COUNT 164 10^3/UL (140-415); RED BLOOD COUNT 3.62 10^6/ul (4.20-5.40); RED CELL DISTRIBUTION WIDTH 14.6 % (11.5-14.5); WHITE BLOOD COUNT 8.9 10^3/ul (4.8-10.8)
[2017-02-24 08:45] VITALS: BP 108/69; PULSE 71; RESP 18
[2017-02-24] MEDS: SENNA/DOCUSATE NA (8.6MG/50MG) TAB PO SCH ×2 (09:10→21:56)
[2017-02-24] MEDS: OXYCODONE/ACETAMINOPHEN (5/325) TAB PO PRN ×2 (09:12→19:28)
[2017-02-24] MEDS: IBUPROFEN 600 MG TAB PO SCH ×2 (12:21→18:11)
--- NOTE | 2017-02-24 15:39 | PN ---
Date/Time of Note Date/Time of Note DATE: 02/24/17 TIME: 15:38 OB Subjective Subjective Subjective Post day 1 Afebrile vital signs abdomen soft incision lochia moderate bowel sounds present extremities normal ambulation encouraged BRIANNE BENEDICT MD Feb 24, 2017 15:39
[2017-02-24 16:17] VITALS: BP 114/65; PULSE 67; RESP 18
[2017-02-24 20:32] VITALS: BP 109/58; PULSE 71; RESP 18
[2017-02-25] MEDS: IBUPROFEN 600 MG TAB PO SCH ×5 (00:02→23:50)
[2017-02-25] MEDS: OXYCODONE/ACETAMINOPHEN (5/325) TAB PO PRN ×3 (03:41→13:29)
[2017-02-25 03:47] VITALS: BP 108/58; PULSE 70; RESP 18
[2017-02-25 08:15] VITALS: BP 112/66; PULSE 70; RESP 18
[2017-02-25] MEDS: SENNA/DOCUSATE NA (8.6MG/50MG) TAB PO SCH ×2 (08:25→21:20)
--- NOTE | 2017-02-25 11:55 | PN ---
Date/Time of Note Date/Time of Note DATE: 02/25/17 TIME: 11:53 OB Subjective Subjective Subjective Post day 2 Afebrile abdomen soft uterus firm incision dry bowel sounds present lochia moderate ,had bowel movement, extremities normal BRIANNE BENEDICT MD Feb 25, 2017 11:55
[2017-02-25 16:00] VITALS: BP 117/76; PULSE 66; RESP 18
[2017-02-25 20:00] VITALS: BP 114/60; PULSE 74; RESP 18
[2017-02-26 04:10] VITALS: BP 116/63; PULSE 73; RESP 18
[2017-02-26] MEDS: OXYCODONE/ACETAMINOPHEN (5/325) TAB PO PRN ×2 (04:30→11:59)
[2017-02-26] MEDS: IBUPROFEN 600 MG TAB PO SCH ×2 (06:19→11:57)
[2017-02-26 08:15] VITALS: BP 119/68; PULSE 67; RESP 16
[2017-02-26] MEDS ORDERED: DIPHTH/TET/ACEL PERTUSS (ADULT) 0.5 ML VIAL IM* ONE (09:00)
[2017-02-26] MEDS: SENNA/DOCUSATE NA (8.6MG/50MG) TAB PO SCH (10:16)
--- NOTE | 2017-02-26 12:24 | PD.PPDC ---
FIELD AUDITOR Discharge Instruction Condition Patient Condition: Good Activity/Restrictions Activity: Normal Activity May Shower Restrictions: No Exercising No Lifting No Driving No Sexual Activity Nothing in the Vagina No [place] No Tampons, douche Wound/Drain Care Instructions Wound/Drain Care Instructions: Remove Steri Strips in 1 week Follow-up Follow-up with Physician: 4, Day/Days Provider Information: Post home instructions given appointment clinic in 4 days to discontinue isabella Return to clinic for DIETARY AID Instructions: Fever greater than 101 Chills Worsening abdominal pain Excessive Vaginal Bleeding More than 2 pads per hour Unable to tolerate diet OB Instructions: Breast Tenderness Depression Blurried Vision Headache Surgical Instructions: Incisional Drainage Incisional Redness BRIANNE BENEDICT MD Feb 26, 2017 12:24
--- NOTE | 2017-02-26 12:28 | DS ---
Date/Time of Note Date/Time of Note DATE: 02/26/17 TIME: 12:25 Discharge Summary Admission/Discharge Info Admit Date/Time Feb 22, 2017 at 22:50 Discharge Date/Time February 26, 2017 at 1220 Discharge Diagnosis Post repeat Patient Condition: Good Procedures Repeat Hx of Present Illness Term history of previous Hospital Course Satisfactory uneventful Home Meds Reported Medications Vits #90-Iron Fum-FA ( Formula) 1 Each Tablet, 1 TAB PO DAILY, TAB 01/31/17 Follow-up Plan Appointment clinic in 4 days to discontinue isabella, post wound care instructions given Primary Care Provider Care Physician No Primary Time spent on discharge: < 30 minutes BRIANNE BENEDICT MD Feb 26, 2017 12:28
[2017-02-26] MEDS ORDERED: NA PHOSPHATE/BIPHOS 133 ML ENEMA PR ONE (12:30)
== END 2017-02-26 14:10 | disposition home or self-care (01) | DRG 765 ==
LOC: L-D 19:17 → OBT 19:17 → L-D 22:50 → OBT 22:57 → L-D 02-23 00:46 → PP1 02-23 15:04
PROVIDERS: ADMIT Obstetrics & Gynecology; ATTEND Obstetrics & Gynecology
PROC: 10D00Z1 Extraction of Products of Conception, Low, Open Approach (ICD-10-PCS; principal; 2017-02-23 08:45)
DX: O34.211 Maternal care for low transverse scar from previous cesarean delivery (principal); O41.03X0 Oligohydramnios, third trimester, not applicable or unspecified; O69.1XX0 Labor and delivery complicated by cord around neck, with compression, not applicable or unspecified; Z37.0 Single live birth; Z3A.38 38 weeks gestation of pregnancy
CPT/HCPCS: 36415; 76815; 81001; 85025; 85610; 85730; 86592; 86850; 86900; 86901; 90715; 94760; 96360; 96361; 96372; 99464; G0463; J0690; J0780; J1885; J2274; J2370; J2405; J2590; J3010; J3105; J7120